=== PATIENT | male | born 1955 | race Caucasian/White ===

== ENCOUNTER 2017-10-16 13:43 | Inpatient (IN) | payer OTHER ==
[~2017-10-16] VITALS: Ht 188 cm; Wt 71.3 kg
[2017-10-16 14:39] LABS: HEMATOCRIT 46.9 % (38.0-50.0); HEMOGLOBIN 15.8 G/DL (12.5-16.6); MCHC 33.7 G/DL (30.0-36.0); MCV 95.1 FL (86-99); RBC DIS.WIDTH-CV 14.3 % (11.8-14.6); RBC DIS.WIDTH-SD 50.1 % (39-53); RED BLOOD COUNT 4.93 M/uL (4.00-5.50); WHITE BLOOD COUNT 12.3 K/uL (4.1-10.2)
[2017-10-16 14:45] LABS: INTER. NORMALIZED RATIO 1.2
[2017-10-16 14:47] LABS: PTT 24.9 SEC (25-37)
[2017-10-16 14:54] LABS: CHLORIDE 102 mEq/L (99-109); POTASSIUM 4.9 mEq/L (3.7-5.4); SODIUM 137 mEq/L (136-147)
[2017-10-16 14:57] LABS: GLUCOSE 125 mg/dL (70-99); TOTAL PROTEIN 7.3 g/dL (6.4-8.3)
[2017-10-16 14:59] LABS: TOTAL BILIRUBIN 1.8 mg/dL (0.0-1.0)
[2017-10-16 15:00] LABS: ALKALINE PHOSPHATASE 80 IU/L (3-129)
[2017-10-16 15:01] LABS: UREA NITROGEN (BUN) 20 mg/dL (9-23)
[2017-10-16 15:02] LABS: AST (GOT) 20 IU/L (2-34); GFR ESTIMATE (CALCULATED) > 59 mL/min/ (58.99-99999)
[2017-10-16 15:03] LABS: ALT (GPT) 11 IU/L (3-49)
[2017-10-16 15:06] LABS: TROP-I INTERPRETATION NEGATIVE; TROPONIN-I 0.09 ng/mL (0.0-0.30)
[2017-10-16 15:10] LABS: DIGOXIN < 0.3 ng/mL (0.8-2.0)
[2017-10-16 15:30] LABS: PLAT.SUFFICIENCY DECREASED; PLATELET CLUMPS PRESENT - PLATELET COUNTS APPEARS DECREASED; PLATELET COUNT UNABLE TO REPORT K/uL (156-360)
[2017-10-16] MEDS ORDERED: ASPIRIN325 MG PO (16:16)
[2017-10-16 16:17] LABS: THYROTROPIN (TSH) 2.2 MIU/L (0.4-5.5)
[2017-10-16] MEDS ORDERED: ALKA-SELTZER P1 EAC6 PO (16:18)
[2017-10-16 16:23] LABS: MAGNESIUM 2.1 mg/dL (1.3-2.7)
[2017-10-16 16:41] LABS: HDL CHOLESTEROL 33 MG/DL (Desirable>=40); LDL CHOLESTEROL 86 mg/dL (Desirable<100); NON-HDL CHOLESTEROL 99 mg/dL (Desirable<160); TOTAL CHOLESTEROL 132 mg/dL (Desirable<200); TRIGLYCERIDES 67 MG/DL (Normal: <150)
[2017-10-16 17:10] VITALS: BP 176/116
[2017-10-16 19:04] VITALS: BP 169/113
[2017-10-16 21:50] VITALS: BP 138/82
[2017-10-16 22:17] LABS: TROP-I INTERPRETATION NEGATIVE; TROPONIN-I 0.09 ng/mL (0.0-0.30)
[2017-10-16 23:45] VITALS: BP 138/89
[2017-10-17 02:38] VITALS: BP 136/89
[2017-10-17 02:45] LABS: HEMATOCRIT 46.1 % (38.0-50.0); HEMOGLOBIN 15.6 G/DL (12.5-16.6); MCH 31.8 PG (29.0-34.0); MCHC 33.8 G/DL (30.0-36.0); MCV 94.1 FL (86-99); RBC DIS.WIDTH-CV 14.2 % (11.8-14.6); RBC DIS.WIDTH-SD 49.4 % (39-53)
[2017-10-17 03:00] LABS: ALBUMIN 3.9 g/dL (3.2-4.8)
[2017-10-17 03:01] LABS: CHLORIDE 99 mEq/L (99-109); POTASSIUM 3.9 mEq/L (3.7-5.4); SODIUM 139 mEq/L (136-147)
[2017-10-17 03:03] LABS: GLUCOSE 97 mg/dL (70-99); TOTAL PROTEIN 6.7 g/dL (6.4-8.3)
[2017-10-17 03:06] LABS: ALKALINE PHOSPHATASE 82 IU/L (3-129)
[2017-10-17 03:07] LABS: CREATININE 1.2 mg/dL (0.6-1.3); GFR ESTIMATE (CALCULATED) > 59 mL/min/ (58.99-99999)
[2017-10-17 03:08] LABS: AST (GOT) 23 IU/L (2-34); UREA NITROGEN (BUN) 23 mg/dL (9-23)
[2017-10-17 03:10] LABS: ALT (GPT) 14 IU/L (3-49)
[2017-10-17 03:12] LABS: TROP-I INTERPRETATION NEGATIVE; TROPONIN-I 0.11 ng/mL (0.0-0.30)
[2017-10-17 03:13] LABS: PLATELET COUNT 156 K/uL (156-360)
[2017-10-17 07:42] VITALS: BP 130/64
[2017-10-17 14:49] VITALS: BP 100/73
[2017-10-17 19:39] VITALS: BP 93/61
[2017-10-18] VITALS (7 sets, daily range): BP systolic 105–131; BP diastolic 75–92
[2017-10-18 05:39] LABS: HEMOGLOBIN 14.9 G/DL (12.5-16.6); MCH 31.2 PG (29.0-34.0); MCHC 33.9 G/DL (30.0-36.0); MCV 92.2 FL (86-99); RBC DIS.WIDTH-CV 13.8 % (11.8-14.6); RBC DIS.WIDTH-SD 47.4 % (39-53); RED BLOOD COUNT 4.77 M/uL (4.00-5.50); WHITE BLOOD COUNT 9.8 K/uL (4.1-10.2)
[2017-10-18 05:41] LABS: PLATELET COUNT 203 K/uL (156-360)
[2017-10-18 06:07] LABS: CHLORIDE 98 MEQ/L (99-109); CREATININE 1.1 MG/DL (0.6-1.3); GFR ESTIMATE (CALCULATED) > 59 mL/min/ (58.99-99999); GLUCOSE 101 mg/dL (70-99); POTASSIUM 3.6 MEQ/L (3.7-5.4); SODIUM 136 MEQ/L (136-147); UREA NITROGEN (BUN) 22 mg/dL (9-23)
[2017-10-19] VITALS (14 sets, daily range): BP systolic 75–135; BP diastolic 00–99
[2017-10-19 06:40] LABS: CHLORIDE 89 MEQ/L (99-109); SODIUM 131 MEQ/L (136-147); UREA NITROGEN (BUN) 30 mg/dL (9-23)
[2017-10-19 06:49] LABS: GFR ESTIMATE (CALCULATED) 36 mL/min/ (58.99-99999); GLUCOSE 159 mg/dL (70-99); POTASSIUM 5.2 MEQ/L (3.7-5.4)
[2017-10-19 11:54] LABS: BASOPHIL (%) 0.3 % (0-1); BASOPHIL COUNT 0.1 K/uL (0-0.1); EOSINOPHIL (%) 0.1 % (0-5); HEMATOCRIT 50.3 % (38.0-50.0); IMMATURE GRANULOCYTE (%) 1.1 % (0.0-0.7); LYMPHOCYTE (%) 7.3 % (15-42); LYMPHOCYTE COUNT 1.2 K/uL (1.0-2.8); MCH 32.2 PG (29.0-34.0); MCHC 33.8 G/DL (30.0-36.0); MCV 95.3 FL (86-99); MONOCYTE (%) 15.6 % (3-12); MONOCYTE COUNT 2.5 K/uL (0-0.8); NEUTROPHIL (%) 75.6 % (45-76); NEUTROPHIL COUNT 11.9 K/uL (1.8-6.4); PLATELET COUNT 144 K/uL (156-360); RBC DIS.WIDTH-CV 14.2 % (11.8-14.6); RBC DIS.WIDTH-SD 49.5 % (39-53); RED BLOOD COUNT 5.28 M/uL (4.00-5.50); WHITE BLOOD COUNT 15.8 K/uL (4.1-10.2)
[2017-10-19 11:57] LABS: BASE EXCESS -10.5 mEq/L (-3 to +3); BICARBONATE 14.1 mEq/L (22-26); CARBOXY HGB 1.5 % (0-5); DEVICE 840 PB; FI02 100 %; METHEMOGLOBIN 1.3 % (0-1.5); MODE SPONT; PCO2 28 mm Hg (35-45); PEEP 6 CM/H20; PO2 362 mm Hg (80-100); PRES. SUPPORT 12 CM/H2O; SITE R ALINE; TOTAL RESP RATE 14 resp/min; pH 7.31 (7.35-7.45)
[2017-10-19 12:02] LABS: CHLORIDE 95 mEq/L (99-109); SODIUM 131 mEq/L (136-147)
[2017-10-19 12:03] LABS: ALBUMIN 3.7 g/dL (3.2-4.8); MAGNESIUM 1.9 mg/dL (1.3-2.7)
[2017-10-19 12:05] LABS: TOTAL PROTEIN 6.7 g/dL (6.4-8.3)
[2017-10-19 12:07] LABS: TOTAL BILIRUBIN 2.3 mg/dL (0.0-1.0)
[2017-10-19 12:08] LABS: PHOSPHORUS 6.8 mg/dL (2.5-4.9)
[2017-10-19 12:09] LABS: ALKALINE PHOSPHATASE 81 IU/L (3-129)
[2017-10-19 12:10] LABS: UREA NITROGEN (BUN) 34 mg/dL (9-23)
[2017-10-19 12:14] LABS: TROP-I INTERPRETATION NEGATIVE; TROPONIN-I 0.06 ng/mL (0.0-0.30)
[2017-10-19 12:23] LABS: ALT (GPT) 126 IU/L (3-49); AST (GOT) 170 IU/L (2-34); CREATININE 2.6 mg/dL (0.6-1.3); GFR ESTIMATE (CALCULATED) 27 mL/min/ (58.99-99999); GLUCOSE 106 mg/dL (70-99)
[2017-10-19 12:23] LABS: APPEARANCE CLOUDY ((CLEAR)); BILIRUBIN NEGATIVE; BLOOD NEGATIVE; COLOR AMBER ((YELLOW)); GLUCOSE (STRIP) NEGATIVE; KETONES NEGATIVE; LEUKOCYTES NEGATIVE; NITRITE NEGATIVE; PROTEIN (STRIP) 30; SPECIFIC GRAVITY 1.025 (1.000-1.030)
[2017-10-19 12:36] LABS: INTER. NORMALIZED RATIO 3.6; PTT 34.4 SEC (25-37)
[2017-10-19 12:56] LABS: ANTI-HEPATITIS B CORE (TOTAL) Nonreactive
[2017-10-19 12:59] LABS: EPITHELIAL CELLS RARE /HPF; WHITE BLOOD CELLS 0-5 /HPF (0-5)
[2017-10-19 13:00] LABS: BACTERIA 1+ /HPF; MUCUS NONE SEEN /LPF; UCUL ADDED? NO
[2017-10-19 13:47] LABS: BASE EXCESS -6.2 mEq/L (-3 to +3); CARBOXY HGB 1.6 % (0-5); DEVICE 840 PB; FI02 60 %; MECHANICAL RATE 16 resp/min; METHEMOGLOBIN 1.4 % (0-1.5); MODE AC; PCO2 36 mm Hg (35-45); PEEP 5 CM/H20; PO2 71 mm Hg (80-100); SITE L FEM ALINE; TIDAL VOLUME 450 ML; TOTAL RESP RATE 16 resp/min; pH 7.33 (7.35-7.45)
[2017-10-19 14:50] LABS: CREATINE KINASE 68 IU/L (1-294)
[2017-10-19 16:01] LABS: INTER. NORMALIZED RATIO 4.2
[2017-10-19 16:04] LABS: PTT 36.1 SEC (25-37)
[2017-10-19 16:08] LABS: BASE EXCESS -6.9 mEq/L (-3 to +3); BICARBONATE 19.2 mEq/L (22-26); CARBOXY HGB 1.8 % (0-5); COMMENTS - BLOOD GASES C+ANA; METHEMOGLOBIN 1.3 % (0-1.5); PCO2 40 mm Hg (35-45); PO2 107 mm Hg (80-100); SITE ALINE; pH 7.29 (7.35-7.45)
[2017-10-19 16:09] LABS: DEVICE 980 PB; FI02 100 %; MECHANICAL RATE 14 resp/min; MODE AC; TIDAL VOLUME 450 ML; TOTAL RESP RATE 21 resp/min
[2017-10-19 16:10] LABS: PEEP 5 CM/H20
[2017-10-19 16:17] LABS: MAGNESIUM 1.4 mg/dl (1.3-2.7); PHOSPHORUS 5.4 mg/dL (2.5-4.9); SODIUM 134 MEQ/L (136-147); UREA NITROGEN (BUN) 34 mg/dL (9-23)
[2017-10-19 16:22] LABS: BASOPHIL (%) 0.1 % (0-1); CHLORIDE 100 MEQ/L (99-109); CREATININE 2.1 MG/DL (0.6-1.3); EOSINOPHIL (%) 0.1 % (0-5); GFR ESTIMATE (CALCULATED) 34 mL/min/ (58.99-99999); GLUCOSE 162 mg/dL (70-99); HEMATOCRIT 41.3 % (38.0-50.0); HEMATOLOGY COMMENT 1 SN; HEMOGLOBIN 13.8 G/DL (12.5-16.6); IMMATURE GRANULOCYTE (%) 0.8 % (0.0-0.7); LYMPHOCYTE (%) 2.7 % (15-42); LYMPHOCYTE COUNT 0.4 K/uL (1.0-2.8); MCH 31.7 PG (29.0-34.0); MCHC 33.4 G/DL (30.0-36.0); MCV 94.9 FL (86-99); MONOCYTE (%) 5.4 % (3-12); MONOCYTE COUNT 0.8 K/uL (0-0.8); NEUTROPHIL (%) 90.9 % (45-76); NEUTROPHIL COUNT 13.6 K/uL (1.8-6.4); PLAT.SUFFICIENCY DECREASED; PLATELET COUNT 88 K/uL (156-360); POTASSIUM 4.5 MEQ/L (3.7-5.4); RBC DIS.WIDTH-CV 14.2 % (11.8-14.6); RBC DIS.WIDTH-SD 49.2 % (39-53); RED BLOOD COUNT 4.35 M/uL (4.00-5.50)
[2017-10-19 19:27] LABS: BASE EXCESS -5.5 mEq/L (-3 to +3); BICARBONATE 18.3 mEq/L (22-26); CARBOXY HGB 1.4 % (0-5); METHEMOGLOBIN 1.4 % (0-1.5); pH 7.38 (7.35-7.45)
[2017-10-19 19:28] LABS: COMMENTS - BLOOD GASES C+; DEVICE VENT; FI02 100 %; MECHANICAL RATE 14 resp/min; MODE A/C; PCO2 31 mm Hg (35-45); PEEP 5 CM/H20; PO2 194 mm Hg (80-100); SITE A LINE; TIDAL VOLUME 450 ML; TOTAL RESP RATE 18 resp/min
[2017-10-19 19:40] LABS: HEMATOCRIT 46.4 % (38.0-50.0); HEMOGLOBIN 15.5 G/DL (12.5-16.6); MCH 31.8 PG (29.0-34.0); MCHC 33.4 G/DL (30.0-36.0); MCV 95.3 FL (86-99); RBC DIS.WIDTH-CV 14.5 % (11.8-14.6); RBC DIS.WIDTH-SD 50.2 % (39-53); RED BLOOD COUNT 4.87 M/uL (4.00-5.50); WHITE BLOOD COUNT 19.6 K/uL (4.1-10.2)
[2017-10-19 20:04] LABS: PLATELET COUNT 117 K/uL (156-360)
[2017-10-19 20:23] LABS: ALBUMIN 3.1 G/DL (3.2-4.8); ALKALINE PHOSPHATASE 63 IU/L (3-129); CHLORIDE 97 MEQ/L (99-109); CREATININE 2.2 MG/DL (0.6-1.3); GFR ESTIMATE (CALCULATED) 33 mL/min/ (58.99-99999); GLUCOSE 192 mg/dL (70-99); PHOSPHORUS 5.7 mg/dL (2.5-4.9); SODIUM 129 MEQ/L (136-147); TOTAL BILIRUBIN 2.1 MG/DL (0.0-1.0); TOTAL PROTEIN 5.4 G/DL (6.4-8.3); UREA NITROGEN (BUN) 35 mg/dL (9-23)
[2017-10-19 20:27] LABS: POTASSIUM 6.5 MEQ/L (3.7-5.4)
[2017-10-19 20:28] LABS: ALT (GPT) 1072 IU/L (3-49); AST (GOT) 1526 IU/L (2-34); MAGNESIUM 1.8 mg/dl (1.3-2.7)
[2017-10-19 20:42] LABS: BASE EXCESS -11.1 mEq/L (-3 to +3); BICARBONATE 17.8 mEq/L (22-26); CARBOXY HGB 1.5 % (0-5); METHEMOGLOBIN 1.2 % (0-1.5)
[2017-10-19 21:24] LABS: PCO2 50 mm Hg (35-45); PO2 59 mm Hg (80-100)
[2017-10-19 21:26] LABS: COMMENTS - BLOOD GASES C+; DEVICE ETT TO AMBU BAG; FI02 100 %; SITE A LINE; pH 7.16 (7.35-7.45)
[2017-10-19 21:59] LABS: BASE EXCESS -7.5 mEq/L (-3 to +3); BICARBONATE 21.1 mEq/L (22-26); CARBOXY HGB 1.7 % (0-5); METHEMOGLOBIN 1.4 % (0-1.5); PCO2 54 mm Hg (35-45); PO2 63 mm Hg (80-100)
[2017-10-19 22:00] LABS: COMMENTS - BLOOD GASES C+; DEVICE VENT; FI02 100 %; MECHANICAL RATE 20 resp/min; MODE A/C; PEEP 8 CM/H20; SITE A LINE; TIDAL VOLUME 450 ML; TOTAL RESP RATE 20 resp/min
[2017-10-20] VITALS (33 sets, daily range): BP systolic 92–1140; BP diastolic 65–810
[2017-10-20 00:27] LABS: BASE EXCESS -5.3 mEq/L (-3 to +3); BICARBONATE 21.2 mEq/L (22-26); CARBOXY HGB 1.8 % (0-5); METHEMOGLOBIN 1.7 % (0-1.5); PCO2 44 mm Hg (35-45); PO2 52 mm Hg (80-100)
[2017-10-20 00:28] LABS: COMMENTS - BLOOD GASES C+; DEVICE VENT; FI02 100 %; MECHANICAL RATE 24 resp/min; MODE AC; PEEP 10 CM/H20; SITE A-LINE; TIDAL VOLUME 450 ML; TOTAL RESP RATE 24 resp/min; pH 7.29 (7.35-7.45)
[2017-10-20 00:46] LABS: INTER. NORMALIZED RATIO 3.9
[2017-10-20 00:49] LABS: PTT 34.5 SEC (25-37)
[2017-10-20 00:50] LABS: CHLORIDE 99 mEq/L (99-109); POTASSIUM 5.4 mEq/L (3.7-5.4)
[2017-10-20 00:53] LABS: GLUCOSE 117 mg/dL (70-99); SODIUM 137 mEq/L (136-147)
[2017-10-20 00:55] LABS: CREATININE 2.2 mg/dL (0.6-1.3); GFR ESTIMATE (CALCULATED) 33 mL/min/ (58.99-99999)
[2017-10-20 00:56] LABS: UREA NITROGEN (BUN) 33 mg/dL (9-23)
[2017-10-20 03:42] LABS: BASE EXCESS -5.1 mEq/L (-3 to +3); BICARBONATE 18.6 mEq/L (22-26); CARBOXY HGB 1.8 % (0-5); COMMENTS - BLOOD GASES C+; DEVICE VENT; FI02 100 %; INSPIRATION TIME 1.25 seconds; MECHANICAL RATE 20 resp/min; METHEMOGLOBIN 1.2 % (0-1.5); MODE ACPC; PCO2 30 mm Hg (35-45); PEEP 12 CM/H20; PO2 143 mm Hg (80-100); PRESSURE CONTROL VENTILATION 25 CM H20; SITE A-LINE; TOTAL RESP RATE 20 resp/min
[2017-10-20 05:55] LABS: BASE EXCESS -2.3 mEq/L (-3 to +3); BICARBONATE 21.2 mEq/L (22-26); CARBOXY HGB 1.9 % (0-5); METHEMOGLOBIN 1.8 % (0-1.5); PCO2 32 mm Hg (35-45); pH 7.43 (7.35-7.45)
[2017-10-20 05:56] LABS: COMMENTS - BLOOD GASES C+; DEVICE VENT; FI02 90 %; INSPIRATION TIME 1.25 seconds; MECHANICAL RATE 20 resp/min; MODE ACPC; PEEP 12 CM/H20; PO2 106 mm Hg (80-100); PRESSURE CONTROL VENTILATION 25 CM H20; SITE A-LINE; TOTAL RESP RATE 20 resp/min
[2017-10-20 06:04] LABS: BASOPHIL (%) 0.2 % (0-1); EOSINOPHIL (%) 0 % (0-5); HEMATOCRIT 39.8 % (38.0-50.0); LYMPHOCYTE (%) 2.8 % (15-42); LYMPHOCYTE COUNT 0.6 K/uL (1.0-2.8); MCH 31.1 PG (29.0-34.0); MCHC 33.2 G/DL (30.0-36.0); MCV 93.9 FL (86-99); MONOCYTE (%) 5.3 % (3-12); MONOCYTE COUNT 1.1 K/uL (0-0.8); NEUTROPHIL (%) 90.7 % (45-76); NEUTROPHIL COUNT 19.6 K/uL (1.8-6.4); PLATELET COUNT 121 K/uL (156-360); RBC DIS.WIDTH-CV 14.5 % (11.8-14.6); RBC DIS.WIDTH-SD 49.8 % (39-53); RED BLOOD COUNT 4.24 M/uL (4.00-5.50); WHITE BLOOD COUNT 21.6 K/uL (4.1-10.2)
[2017-10-20 06:06] LABS: INTER. NORMALIZED RATIO 3.2
[2017-10-20 06:09] LABS: PTT 32.1 SEC (25-37)
[2017-10-20 06:20] LABS: HEMOGLOBIN 13.2 G/DL (12.5-16.6)
[2017-10-20 06:21] LABS: ALBUMIN 3.4 G/DL (3.2-4.8); CHLORIDE 95 MEQ/L (99-109); CREATININE 2.6 MG/DL (0.6-1.3); GFR ESTIMATE (CALCULATED) 27 mL/min/ (58.99-99999); GLUCOSE 141 mg/dL (70-99); PHOSPHORUS 5.6 mg/dL (2.5-4.9); POTASSIUM 5.1 MEQ/L (3.7-5.4); SODIUM 138 MEQ/L (136-147); UREA NITROGEN (BUN) 38 mg/dL (9-23)
[2017-10-20 08:22] LABS: DIGOXIN 2.3 ng/mL (0.8-2.0)
[2017-10-20 08:49] LABS: BASE EXCESS -0.8 mEq/L (-3 to +3); BICARBONATE 20.1 mEq/L (22-26); CARBOXY HGB 1.8 % (0-5); DEVICE 840 PB; FI02 90 %; MECHANICAL RATE 20 resp/min; METHEMOGLOBIN 1.5 % (0-1.5); MODE ACPC; PCO2 23 mm Hg (35-45); PO2 134 mm Hg (80-100); SITE L ALINE; TOTAL RESP RATE 20 resp/min; pH 7.55 (7.35-7.45)
[2017-10-20 08:50] LABS: PRESSURE CONTROL VENTILATION 25 CM H20
[2017-10-20 08:51] LABS: INSPIRATION TIME 1.25 seconds; PEEP 12 CM/H20
[2017-10-20 09:44] LABS: ALBUMIN 3.3 G/DL (3.2-4.8); ALKALINE PHOSPHATASE 63 IU/L (3-129); CHLORIDE 94 MEQ/L (99-109); CREATININE 2.7 MG/DL (0.6-1.3); DIRECT BILIRUBIN 1.9 mg/dL (0.0-0.3); GFR ESTIMATE (CALCULATED) 26 mL/min/ (58.99-99999); GLUCOSE 137 mg/dL (70-99); SODIUM 138 MEQ/L (136-147); TOTAL PROTEIN 5.5 G/DL (6.4-8.3); UREA NITROGEN (BUN) 36 mg/dL (9-23)
[2017-10-20 09:55] LABS: ALT (GPT) 2934 IU/L (3-49); AST (GOT) 5315 IU/L (2-34); TOTAL BILIRUBIN 3.4 MG/DL (0.0-1.0)
[2017-10-20 11:54] LABS: BASE EXCESS 0.2 mEq/L (-3 to +3); BICARBONATE 20.6 mEq/L (22-26); CARBOXY HGB 1.6 % (0-5); COMMENTS - BLOOD GASES C+; DEVICE VENT; FI02 100 %; METHEMOGLOBIN 1.3 % (0-1.5); PCO2 22 mm Hg (35-45); PO2 219 mm Hg (80-100)
[2017-10-20 11:55] LABS: INSPIRATION TIME 1.25 seconds; MECHANICAL RATE 20 resp/min; MODE ACPC; PEEP 15 CM/H20; PRESSURE CONTROL VENTILATION 25 CM H20
[2017-10-20 11:57] LABS: SITE L FEM ALINE; pH 7.58 (7.35-7.45)
[2017-10-20 12:02] LABS: BASE EXCESS 2.2 mEq/L (-3 to +3); BICARBONATE 25.1 mEq/L (22-26); CARBOXY HGB 1.4 % (0-5); COMMENTS - BLOOD GASES C+; DEVICE VENT; FI02 100 %; INSPIRATION TIME 1.25 seconds; MECHANICAL RATE 20 resp/min; METHEMOGLOBIN 1.7 % (0-1.5); MODE ACPC; PCO2 33 mm Hg (35-45); PEEP 15 CM/H20; PRESSURE CONTROL VENTILATION 25 CM H20; SITE L FEM L; pH 7.49 (7.35-7.45)
[2017-10-20 12:03] LABS: PO2 33 mm Hg (80-100)
[2017-10-20 18:49] LABS: HEMATOCRIT 34.3 % (38.0-50.0); HEMOGLOBIN 11.5 G/DL (12.5-16.6); MCH 31.5 PG (29.0-34.0); MCHC 33.5 G/DL (30.0-36.0); PLATELET COUNT 90 K/uL (156-360); RBC DIS.WIDTH-CV 14.6 % (11.8-14.6); RBC DIS.WIDTH-SD 50.4 % (39-53); RED BLOOD COUNT 3.65 M/uL (4.00-5.50); WHITE BLOOD COUNT 14.6 K/uL (4.1-10.2)
[2017-10-20 18:56] LABS: INTER. NORMALIZED RATIO 2.8
[2017-10-20 18:58] LABS: PTT 32.7 SEC (25-37)
[2017-10-20 18:58] LABS: BASE EXCESS 5.7 mEq/L (-3 to +3); BICARBONATE 27.8 mEq/L (22-26); CARBOXY HGB 1.5 % (0-5); METHEMOGLOBIN 1.4 % (0-1.5); PCO2 31 mm Hg (35-45)
[2017-10-20 18:59] LABS: PO2 143 mm Hg (80-100); SITE A LINE; pH 7.56 (7.35-7.45)
[2017-10-20 19:00] LABS: COMMENTS - BLOOD GASES C+; DEVICE VENT; FI02 70 %; INSPIRATION TIME 1.25 seconds; MECHANICAL RATE 20 resp/min; MODE A/C; PEEP 12 CM/H20; PRESSURE CONTROL VENTILATION 18 CM H20; TOTAL RESP RATE 20 resp/min
[2017-10-20 19:07] LABS: ALBUMIN 3.5 G/DL (3.2-4.8); ALKALINE PHOSPHATASE 75 IU/L (3-129); CHLORIDE 92 MEQ/L (99-109); GFR ESTIMATE (CALCULATED) 23 mL/min/ (58.99-99999); GLUCOSE 166 mg/dL (70-99); MAGNESIUM 1.6 mg/dl (1.3-2.7); PHOSPHORUS 4.9 mg/dL (2.5-4.9); SODIUM 137 MEQ/L (136-147); TOTAL BILIRUBIN 3.6 MG/DL (0.0-1.0); UREA NITROGEN (BUN) 44 mg/dL (9-23)
[2017-10-20 19:22] LABS: ALT (GPT) 3643 IU/L (3-49); AST (GOT) 7156 IU/L (2-34)
[2017-10-20 22:45] LABS: HEMATOCRIT 32.1 % (38.0-50.0); HEMOGLOBIN 11.1 G/DL (12.5-16.6); MCH 32.5 PG (29.0-34.0); MCHC 34.6 G/DL (30.0-36.0); MCV 93.9 FL (86-99); PLATELET COUNT 74 K/uL (156-360); RBC DIS.WIDTH-CV 14.6 % (11.8-14.6); RBC DIS.WIDTH-SD 49.8 % (39-53); RED BLOOD COUNT 3.42 M/uL (4.00-5.50); WHITE BLOOD COUNT 12.5 K/uL (4.1-10.2)
[2017-10-21] VITALS (13 sets, daily range): BP systolic 138–158; BP diastolic 72–99
[2017-10-21 01:55] LABS: HEMOGLOBIN 10.6 G/DL (12.5-16.6); MCH 31.7 PG (29.0-34.0); MCHC 34.2 G/DL (30.0-36.0); MCV 92.8 FL (86-99); PLATELET COUNT 73 K/uL (156-360); RBC DIS.WIDTH-CV 14.4 % (11.8-14.6); RBC DIS.WIDTH-SD 48.2 % (39-53); RED BLOOD COUNT 3.34 M/uL (4.00-5.50)
[2017-10-21 05:01] LABS: ALBUMIN 3.2 g/dL (3.2-4.8); CHLORIDE 91 mEq/L (99-109)
[2017-10-21 05:02] LABS: POTASSIUM 3.6 mEq/L (3.7-5.4); SODIUM 138 mEq/L (136-147)
[2017-10-21 05:03] LABS: GLUCOSE 121 mg/dL (70-99)
[2017-10-21 05:07] LABS: GFR ESTIMATE (CALCULATED) 18 mL/min/ (58.99-99999); PHOSPHORUS 4.7 mg/dL (2.5-4.9)
[2017-10-21 05:08] LABS: UREA NITROGEN (BUN) 49 mg/dL (9-23)
[2017-10-21 05:09] LABS: CREATININE 3.6 mg/dL (0.6-1.3)
[2017-10-21 06:11] LABS: BICARBONATE 40.2 mEq/L (22-26); CARBOXY HGB 1.8 % (0-5); METHEMOGLOBIN 1.4 % (0-1.5); PCO2 46 mm Hg (35-45); PO2 36 mm Hg (80-100); SITE CENTRAL LINE; pH 7.55 (7.35-7.45)
[2017-10-21 06:12] LABS: DEVICE VENT
[2017-10-21 08:52] LABS: PTT 34.2 SEC (25-37)
[2017-10-21 09:28] LABS: FIBRINOGEN 208 mg/dL (150-450)
[2017-10-21 10:34] LABS: HEPATITIS B SURFACE ANTIGEN Nonreactive; HEPATITIS C ANTIBODY Nonreactive
[2017-10-21 10:35] LABS: ANTI-HEPATITIS A VIRUS (IGM) Nonreactive; ANTI-HEPATITIS B CORE (IGM) Nonreactive
[2017-10-21 18:45] LABS: ALBUMIN 3.4 G/DL (3.2-4.8); CHLORIDE 89 MEQ/L (99-109); CREATININE 4.2 MG/DL (0.6-1.3); GFR ESTIMATE (CALCULATED) 15 mL/min/ (58.99-99999); GLUCOSE 117 mg/dL (70-99); PHOSPHORUS 4.5 mg/dL (2.5-4.9); POTASSIUM 3.7 MEQ/L (3.7-5.4); SODIUM 140 MEQ/L (136-147); UREA NITROGEN (BUN) 59 mg/dL (9-23)
[2017-10-22 00:45] LABS: ALBUMIN 3.3 g/dL (3.2-4.8)
[2017-10-22 00:46] LABS: CHLORIDE 91 mEq/L (99-109); POTASSIUM 3.8 mEq/L (3.7-5.4); SODIUM 138 mEq/L (136-147)
[2017-10-22 00:47] LABS: GLUCOSE 106 mg/dL (70-99)
[2017-10-22 00:51] LABS: CREATININE 3.7 mg/dL (0.6-1.3); GFR ESTIMATE (CALCULATED) 18 mL/min/ (58.99-99999); PHOSPHORUS 3.8 mg/dL (2.5-4.9)
[2017-10-22 00:52] LABS: UREA NITROGEN (BUN) 54 mg/dL (9-23)
[2017-10-22 04:01] VITALS: BP 129/78
[2017-10-22 05:22] LABS: HEMATOCRIT 30.5 % (38.0-50.0); HEMOGLOBIN 10.4 G/DL (12.5-16.6); MCH 31.3 PG (29.0-34.0); MCHC 34.1 G/DL (30.0-36.0); MCV 91.9 FL (86-99); NRBC (%) 0.2 /100 WBC (0-0); PLATELET COUNT 65 K/uL (156-360); RBC DIS.WIDTH-CV 14.6 % (11.8-14.6); RBC DIS.WIDTH-SD 48.1 % (39-53); RED BLOOD COUNT 3.32 M/uL (4.00-5.50); WHITE BLOOD COUNT 12.9 K/uL (4.1-10.2)
[2017-10-22 05:32] LABS: INTER. NORMALIZED RATIO 3.3
[2017-10-22 06:14] LABS: ALBUMIN 3.2 G/DL (3.2-4.8); ALKALINE PHOSPHATASE 79 IU/L (3-129); CHLORIDE 91 MEQ/L (99-109); CREATININE 3.6 MG/DL (0.6-1.3); GFR ESTIMATE (CALCULATED) 18 mL/min/ (58.99-99999); GLUCOSE 113 mg/dL (70-99); POTASSIUM 3.7 MEQ/L (3.7-5.4); SODIUM 136 MEQ/L (136-147); TOTAL PROTEIN 5.7 G/DL (6.4-8.3); UREA NITROGEN (BUN) 50 mg/dL (9-23)
[2017-10-22 06:15] LABS: TOTAL BILIRUBIN 5.4 MG/DL (0.0-1.0)
[2017-10-22 06:18] LABS: ALBUMIN 3.2 G/DL (3.2-4.8); CHLORIDE 91 MEQ/L (99-109); CREATININE 3.5 MG/DL (0.6-1.3); GFR ESTIMATE (CALCULATED) 19 mL/min/ (58.99-99999); GLUCOSE 112 mg/dL (70-99); POTASSIUM 3.7 MEQ/L (3.7-5.4); SODIUM 137 MEQ/L (136-147); UREA NITROGEN (BUN) 50 mg/dL (9-23)
[2017-10-22 06:25] LABS: A/G RATIO 1.2 (1.1-1.8); ALBUMIN 3.1 G/DL (3.2-4.8); ALBUMIN 3.1 G/DL (3.4-5.0); CHLORIDE 93 MEQ/L (99-109); CREATININE 3.6 MG/DL (0.6-1.3); GFR ESTIMATE (CALCULATED) 18 mL/min/ (58.99-99999); GLOBULINS 2.6 G/DL (2.3-3.5); GLUCOSE 112 mg/dL (70-99); MAGNESIUM 1.7 mg/dl (1.3-2.7); POTASSIUM 3.7 MEQ/L (3.7-5.4); SODIUM 138 MEQ/L (136-147); TOTAL PROTEIN 5.7 G/DL (6.4-8.2); TRANSFERRIN (TIBC) 185.1 mg/dL (215-380); UREA NITROGEN (BUN) 50 mg/dL (9-23)
[2017-10-22 10:52] LABS: ALT (GPT) 2475 IU/L (3-49); AST (GOT) 2173 IU/L (2-34)
[2017-10-22 13:04] LABS: ALBUMIN 3.2 G/DL (3.2-4.8); CHLORIDE 95 MEQ/L (99-109); CREATININE 3.2 MG/DL (0.6-1.3); GFR ESTIMATE (CALCULATED) 21 mL/min/ (58.99-99999); GLUCOSE 126 mg/dL (70-99); PHOSPHORUS 2.6 mg/dL (2.5-4.9); POTASSIUM 3.9 MEQ/L (3.7-5.4); SODIUM 137 MEQ/L (136-147); UREA NITROGEN (BUN) 44 mg/dL (9-23)
[2017-10-22 20:00] VITALS: BP 129/91
[2017-10-23] VITALS: BP 148/87
[2017-10-23 01:21] LABS: ALBUMIN 3.2 g/dL (3.2-4.8)
[2017-10-23 01:22] LABS: CHLORIDE 99 mEq/L (99-109); POTASSIUM 4.3 mEq/L (3.7-5.4); SODIUM 137 mEq/L (136-147)
[2017-10-23 01:24] LABS: GLUCOSE 119 mg/dL (70-99)
[2017-10-23 01:27] LABS: GFR ESTIMATE (CALCULATED) 27 mL/min/ (58.99-99999); PHOSPHORUS 2.4 mg/dL (2.5-4.9)
[2017-10-23 01:28] LABS: CREATININE 2.6 mg/dL (0.6-1.3); UREA NITROGEN (BUN) 36 mg/dL (9-23)
[2017-10-23 04:00] VITALS: BP 127/71
[2017-10-23 06:08] LABS: BASOPHIL (%) 0.1 % (0-1); EOSINOPHIL (%) 0 % (0-5); HEMOGLOBIN 11.8 G/DL (12.5-16.6); IMMATURE GRANULOCYTE (%) 0.9 % (0.0-0.7); LYMPHOCYTE (%) 5.6 % (15-42); LYMPHOCYTE COUNT 0.7 K/uL (1.0-2.8); MCH 31.5 PG (29.0-34.0); MCHC 34.7 G/DL (30.0-36.0); MCV 90.7 FL (86-99); MONOCYTE (%) 4.6 % (3-12); MONOCYTE COUNT 0.6 K/uL (0-0.8); NEUTROPHIL (%) 88.8 % (45-76); NEUTROPHIL COUNT 11.8 K/uL (1.8-6.4); NRBC (%) 0.2 /100 WBC (0-0); PLATELET COUNT 82 K/uL (156-360); RBC DIS.WIDTH-CV 14.2 % (11.8-14.6); RBC DIS.WIDTH-SD 46.9 % (39-53); RED BLOOD COUNT 3.75 M/uL (4.00-5.50); WHITE BLOOD COUNT 13.3 K/uL (4.1-10.2)
[2017-10-23 06:45] LABS: ALBUMIN 3.1 G/DL (3.2-4.8); ALKALINE PHOSPHATASE 90 IU/L (3-129); CHLORIDE 99 MEQ/L (99-109); CREATININE 2.5 MG/DL (0.6-1.3); GFR ESTIMATE (CALCULATED) 28 mL/min/ (58.99-99999); GLUCOSE 123 mg/dL (70-99); SODIUM 136 MEQ/L (136-147); TOTAL PROTEIN 5.5 G/DL (6.4-8.3); UREA NITROGEN (BUN) 35 mg/dL (9-23)
[2017-10-23 06:47] LABS: INTER. NORMALIZED RATIO 2.8
[2017-10-23 06:53] LABS: ALT (GPT) 1654 IU/L (3-49); AST (GOT) 575 IU/L (2-34); TOTAL BILIRUBIN 8.9 MG/DL (0.0-1.0)
[2017-10-23 12:57] LABS: ALBUMIN 3.1 G/DL (3.2-4.8); CHLORIDE 99 MEQ/L (99-109); CREATININE 2.2 MG/DL (0.6-1.3); GFR ESTIMATE (CALCULATED) 33 mL/min/ (58.99-99999); GLUCOSE 127 mg/dL (70-99); PHOSPHORUS 2.2 mg/dL (2.5-4.9); POTASSIUM 4.2 MEQ/L (3.7-5.4); SODIUM 134 MEQ/L (136-147); UREA NITROGEN (BUN) 34 mg/dL (9-23)
[2017-10-23 20:00] VITALS: BP 139/78
[2017-10-24] VITALS (7 sets, daily range): BP systolic 115–136; BP diastolic 66–79
[2017-10-24 02:56] LABS: C DIFF TOXIN NEGATIVE (NEGATIVE)
[2017-10-24 04:38] LABS: HEMATOCRIT 34.1 % (38.0-50.0); HEMOGLOBIN 12.3 G/DL (12.5-16.6); MCH 32.5 PG (29.0-34.0); MCHC 36.1 G/DL (30.0-36.0); NRBC (%) 0.6 /100 WBC (0-0); PLATELET COUNT 92 K/uL (156-360); RBC DIS.WIDTH-CV 14.7 % (11.8-14.6); RBC DIS.WIDTH-SD 46.2 % (39-53); RED BLOOD COUNT 3.79 M/uL (4.00-5.50); WHITE BLOOD COUNT 14.5 K/uL (4.1-10.2)
[2017-10-24 04:50] LABS: ALBUMIN 2.8 g/dL (3.2-4.8); CHLORIDE 102 mEq/L (99-109); POTASSIUM 4.4 mEq/L (3.7-5.4); SODIUM 137 mEq/L (136-147)
[2017-10-24 04:53] LABS: GLUCOSE 121 mg/dL (70-99)
[2017-10-24 04:56] LABS: PHOSPHORUS 2.2 mg/dL (2.5-4.9)
[2017-10-24 04:57] LABS: UREA NITROGEN (BUN) 48 mg/dL (9-23)
[2017-10-24 05:06] LABS: GFR ESTIMATE (CALCULATED) 23 mL/min/ (58.99-99999); MAGNESIUM 2.4 mg/dL (1.3-2.7)
[2017-10-24 09:38] LABS: ALBUMIN 2.9 g/dL (3.2-4.8)
[2017-10-24 09:42] LABS: TOTAL BILIRUBIN 10.6 mg/dL (0.0-1.0)
[2017-10-24 09:43] LABS: TOTAL PROTEIN 5.3 g/dL (6.4-8.3)
[2017-10-24 09:44] LABS: ALKALINE PHOSPHATASE 111 IU/L (3-129)
[2017-10-24 09:46] LABS: AST (GOT) 209 IU/L (2-34)
[2017-10-24 09:47] LABS: ALT (GPT) 1242 IU/L (3-49)
[2017-10-24 09:59] LABS: HIGH-SENS C-REACTIVE PROTEIN 1.85 MG/DL (0.02-0.20)
[2017-10-24 14:03] LABS: ALBUMIN 3.27 G/DL (3.6-4.9); ALPHA-1 GLOBULIN 0.33 G/DL (0.15-0.40); ALPHA-2 GLOBULIN 0.44 G/DL (0.45-0.85); BETA-GLOBULIN 0.66 G/DL (0.65-1.15)
[2017-10-25] VITALS: BP 142/79
[2017-10-25 03:00] VITALS: BP 134/74
[2017-10-25 04:00] VITALS: BP 144/79
[2017-10-25 07:00] VITALS: BP 152/89
[2017-10-25 08:53] LABS: HEMATOCRIT 35.4 % (38.0-50.0); HEMOGLOBIN 12.5 G/DL (12.5-16.6); MCHC 35.3 G/DL (30.0-36.0); MCV 90.5 FL (86-99); NRBC (%) 0.4 /100 WBC (0-0); PLATELET COUNT 91 K/uL (156-360); RBC DIS.WIDTH-CV 16.6 % (11.8-14.6); RBC DIS.WIDTH-SD 48.7 % (39-53); RED BLOOD COUNT 3.91 M/uL (4.00-5.50)
[2017-10-25 09:54] LABS: ALBUMIN 3.2 G/DL (3.2-4.8); ALKALINE PHOSPHATASE 96 IU/L (3-129); ALT (GPT) 716 IU/L (3-49); TOTAL BILIRUBIN 8.6 MG/DL (0.0-1.0); TOTAL PROTEIN 5.4 G/DL (6.4-8.3)
[2017-10-25 09:57] LABS: AST (GOT) 93 IU/L (2-34); DIRECT BILIRUBIN 4.8 mg/dL (0.0-0.3)
[2017-10-25 11:01] LABS: ALBUMIN 3.1 G/DL (3.2-4.8); CHLORIDE 101 MEQ/L (99-109); GFR ESTIMATE (CALCULATED) 18 mL/min/ (58.99-99999); GLUCOSE 147 mg/dL (70-99); PHOSPHORUS 2.7 mg/dL (2.5-4.9); SODIUM 142 MEQ/L (136-147); UREA NITROGEN (BUN) 65 mg/dL (9-23)
[2017-10-25 11:03] LABS: CREATININE 3.6 MG/DL (0.6-1.3)
[2017-10-26] VITALS (12 sets, daily range): BP systolic 128–148; BP diastolic 70–82
[2017-10-26 06:54] LABS: HEMATOCRIT 35.8 % (38.0-50.0); HEMOGLOBIN 12.3 G/DL (12.5-16.6); MCH 31.1 PG (29.0-34.0); MCHC 34.4 G/DL (30.0-36.0); MCV 90.6 FL (86-99); NRBC (%) 0.2 /100 WBC (0-0); PLATELET COUNT 70 K/uL (156-360); RBC DIS.WIDTH-CV 16.8 % (11.8-14.6); RBC DIS.WIDTH-SD 48.8 % (39-53); RED BLOOD COUNT 3.95 M/uL (4.00-5.50)
[2017-10-26 07:26] LABS: ALBUMIN 3.2 G/DL (3.2-4.8); CHLORIDE 99 MEQ/L (99-109); CREATININE 3.7 MG/DL (0.6-1.3); GFR ESTIMATE (CALCULATED) 18 mL/min/ (58.99-99999); GLUCOSE 150 mg/dL (70-99); PHOSPHORUS 3.5 mg/dL (2.5-4.9); POTASSIUM 3.8 MEQ/L (3.7-5.4); SODIUM 138 MEQ/L (136-147); UREA NITROGEN (BUN) 73 mg/dL (9-23)
[2017-10-26 07:37] LABS: ALBUMIN 3.2 G/DL (3.2-4.8); ALKALINE PHOSPHATASE 91 IU/L (3-129); ALT (GPT) 447 IU/L (3-49); AST (GOT) 56 IU/L (2-34); DIRECT BILIRUBIN 4.2 mg/dL (0.0-0.3); TOTAL BILIRUBIN 7.5 MG/DL (0.0-1.0); TOTAL PROTEIN 5.4 G/DL (6.4-8.3)
[2017-10-26 18:25] LABS: LIVER/KIDNEY MICROSOMAL ABY+ <=20.0 U (<=20.0)
[2017-10-26 23:26] LABS: MITOCHONDRIAL (M2) ANTIBODIES+ <=20.0 U (<=20.0)
[2017-10-27] VITALS (19 sets, daily range): BP systolic 102–159; BP diastolic 65–100
[2017-10-27 07:04] LABS: HEMATOCRIT 36.7 % (38.0-50.0); MCH 31.5 PG (29.0-34.0); MCHC 35.4 G/DL (30.0-36.0); MCV 88.9 FL (86-99); PLATELET COUNT 60 K/uL (156-360); RBC DIS.WIDTH-CV 17.2 % (11.8-14.6); RBC DIS.WIDTH-SD 48.6 % (39-53); RED BLOOD COUNT 4.13 M/uL (4.00-5.50); WHITE BLOOD COUNT 19.4 K/uL (4.1-10.2)
[2017-10-27 07:28] LABS: ALBUMIN 2.9 G/DL (3.2-4.8); ALKALINE PHOSPHATASE 98 IU/L (3-129); ALT (GPT) 354 IU/L (3-49); AST (GOT) 49 IU/L (2-34); DIRECT BILIRUBIN 3.9 mg/dL (0.0-0.3); TOTAL BILIRUBIN 6.1 MG/DL (0.0-1.0); TOTAL PROTEIN 5.3 G/DL (6.4-8.3)
[2017-10-27 07:33] LABS: CHLORIDE 98 MEQ/L (99-109); GLUCOSE 139 mg/dL (70-99); POTASSIUM 3.8 MEQ/L (3.7-5.4); SODIUM 139 MEQ/L (136-147)
[2017-10-27 07:34] LABS: CREATININE 5.3 MG/DL (0.6-1.3); GFR ESTIMATE (CALCULATED) 12 mL/min/ (58.99-99999); PHOSPHORUS 5.1 mg/dL (2.5-4.9)
[2017-10-27 07:38] LABS: UREA NITROGEN (BUN) 101 mg/dL (9-23)
[2017-10-27 10:54] LABS: HEPATITIS B SURFACE ANTIBODY REACTIVE
[2017-10-28 06:13] LABS: BASOPHIL (%) 0.2 % (0-1); BASOPHIL COUNT 0.1 K/uL (0-0.1); EOSINOPHIL (%) 0 % (0-5); HEMATOCRIT 36.3 % (38.0-50.0); HEMOGLOBIN 12.4 G/DL (12.5-16.6); IMM.PLATELET FRACTION 12.5 (1-7); IMMATURE GRANULOCYTE (%) 1.5 % (0.0-0.7); LYMPHOCYTE (%) 2.7 % (15-42); LYMPHOCYTE COUNT 0.6 K/uL (1.0-2.8); MCH 31.8 PG (29.0-34.0); MCHC 34.2 G/DL (30.0-36.0); MCV 93.1 FL (86-99); MONOCYTE (%) 5.6 % (3-12); MONOCYTE COUNT 1.2 K/uL (0-0.8); NEUTROPHIL COUNT 19.3 K/uL (1.8-6.4); PLATELET COUNT 50 K/uL (156-360); RBC DIS.WIDTH-CV 17.8 % (11.8-14.6); WHITE BLOOD COUNT 21.5 K/uL (4.1-10.2)
[2017-10-28 06:19] LABS: ALBUMIN 3.6 G/DL (3.2-4.8); CHLORIDE 98 MEQ/L (99-109); CREATININE 4.7 MG/DL (0.6-1.3); GFR ESTIMATE (CALCULATED) 14 mL/min/ (58.99-99999); GLUCOSE 125 mg/dL (70-99); MAGNESIUM 2.7 mg/dl (1.3-2.7); SODIUM 139 MEQ/L (136-147); UREA NITROGEN (BUN) 86 mg/dL (9-23)
[2017-10-28 06:20] LABS: PHOSPHORUS 8.2 mg/dL (2.5-4.9); POTASSIUM 4.7 MEQ/L (3.7-5.4)
[2017-10-28 07:06] VITALS: BP 136/83
[2017-10-28 08:00] VITALS: BP 140/82
[2017-10-28 12:00] VITALS: BP 150/82
[2017-10-28 16:00] VITALS: BP 138/79
[2017-10-28 20:00] VITALS: BP 142/88
[2017-10-28 22:33] LABS: BASE EXCESS -1.7 mEq/L (-3 to +3); CARBOXY HGB 2.6 % (0-5); COMMENTS - BLOOD GASES C+A+; DEVICE VENT; FI02 30 %; METHEMOGLOBIN 1.7 % (0-1.5); MODE SPONT; PCO2 38 mm Hg (35-45); PEEP 5 CM/H20; PO2 103 mm Hg (80-100); PRES. SUPPORT 8 CM/H2O; SITE RR; TOTAL RESP RATE 19 resp/min; pH 7.39 (7.35-7.45)
[2017-10-29] VITALS (20 sets, daily range): BP systolic 110–182; BP diastolic 47–102
[2017-10-29 05:28] LABS: HEMATOCRIT 35.1 % (38.0-50.0); HEMOGLOBIN 12.4 G/DL (12.5-16.6); MCH 32.6 PG (29.0-34.0); MCHC 35.3 G/DL (30.0-36.0); MCV 92.4 FL (86-99); PLATELET COUNT 57 K/uL (156-360); RBC DIS.WIDTH-CV 17.9 % (11.8-14.6); RBC DIS.WIDTH-SD 57.4 % (39-53)
[2017-10-29 12:23] LABS: ALBUMIN 3.5 G/DL (3.2-4.8); CHLORIDE 95 MEQ/L (99-109); GFR ESTIMATE (CALCULATED) 10 mL/min/ (58.99-99999); GLUCOSE 137 mg/dL (70-99); PHOSPHORUS 10.2 mg/dL (2.5-4.9); POTASSIUM 4.1 MEQ/L (3.7-5.4); SODIUM 137 MEQ/L (136-147)
[2017-10-29 12:25] LABS: CREATININE 6.2 MG/DL (0.6-1.3); UREA NITROGEN (BUN) 126 mg/dL (9-23)
[2017-10-29 23:53] LABS: BASE EXCESS 1.6 mEq/L (-3 to +3); BICARBONATE 24.6 mEq/L (22-26); CARBOXY HGB 2.8 % (0-5); COMMENTS - BLOOD GASES A+C+; DEVICE VENT; FI02 30 %; METHEMOGLOBIN 1.8 % (0-1.5); MODE SPONT; PCO2 33 mm Hg (35-45); PEEP 5 CM/H20; PO2 111 mm Hg (80-100); PRES. SUPPORT 8 CM/H2O; SITE RR; TOTAL RESP RATE 32 resp/min; pH 7.48 (7.35-7.45)
[2017-10-30] VITALS (24 sets, daily range): BP systolic 91–160; BP diastolic 54–86
[2017-10-30 05:57] LABS: HEMOGLOBIN 12.3 G/DL (12.5-16.6); MCH 32.2 PG (29.0-34.0); MCHC 34.2 G/DL (30.0-36.0); MCV 94.2 FL (86-99); PLATELET COUNT 66 K/uL (156-360); RBC DIS.WIDTH-CV 17.7 % (11.8-14.6); RBC DIS.WIDTH-SD 59.6 % (39-53); RED BLOOD COUNT 3.82 M/uL (4.00-5.50); WHITE BLOOD COUNT 25.1 K/uL (4.1-10.2)
[2017-10-30 06:30] LABS: CHLORIDE 99 MEQ/L (99-109); GFR ESTIMATE (CALCULATED) 13 mL/min/ (58.99-99999); GLUCOSE 144 mg/dL (70-99); PHOSPHORUS 7.5 mg/dL (2.5-4.9); POTASSIUM 4.4 MEQ/L (3.7-5.4); SODIUM 138 MEQ/L (136-147); UREA NITROGEN (BUN) 95 mg/dL (9-23)
[2017-10-30 15:05] LABS: BASE EXCESS 4.2 mEq/L (-3 to +3); BICARBONATE 27.1 mEq/L (22-26); CARBOXY HGB 2.9 % (0-5); METHEMOGLOBIN 1.6 % (0-1.5); PCO2 34 mm Hg (35-45); pH 7.51 (7.35-7.45)
[2017-10-30 15:06] LABS: COMMENTS - BLOOD GASES A+C+; DEVICE T-PIECE; FI02 21 %; O2 FLOW 12 L/MIN; PO2 68 mm Hg (80-100); SITE RR; TOTAL RESP RATE 22 resp/min
[2017-10-31] VITALS (20 sets, daily range): BP systolic 108–167; BP diastolic 55–94
[2017-10-31 05:04] LABS: BASOPHIL (%) 0.2 % (0-1); EOSINOPHIL (%) 0.7 % (0-5); EOSINOPHIL COUNT 0.1 K/uL (0-0.3); HEMATOCRIT 39.1 % (38.0-50.0); HEMOGLOBIN 13.8 G/DL (12.5-16.6); LYMPHOCYTE (%) 5.3 % (15-42); LYMPHOCYTE COUNT 1.1 K/uL (1.0-2.8); MCH 32.9 PG (29.0-34.0); MCHC 35.3 G/DL (30.0-36.0); MCV 93.3 FL (86-99); MONOCYTE (%) 10.2 % (3-12); MONOCYTE COUNT 2.1 K/uL (0-0.8); NEUTROPHIL (%) 82.6 % (45-76); NEUTROPHIL COUNT 16.5 K/uL (1.8-6.4); PLATELET COUNT 70 K/uL (156-360); RBC DIS.WIDTH-CV 17.3 % (11.8-14.6); RBC DIS.WIDTH-SD 57.3 % (39-53); RED BLOOD COUNT 4.19 M/uL (4.00-5.50)
[2017-10-31 05:35] LABS: ALBUMIN 2.9 g/dL (3.2-4.8); CHLORIDE 98 mEq/L (99-109); POTASSIUM 4.1 mEq/L (3.7-5.4); SODIUM 136 mEq/L (136-147)
[2017-10-31 05:36] LABS: MAGNESIUM 2.2 mg/dL (1.3-2.7)
[2017-10-31 05:38] LABS: TOTAL PROTEIN 5.4 g/dL (6.4-8.3)
[2017-10-31 05:41] LABS: ALKALINE PHOSPHATASE 112 IU/L (3-129)
[2017-10-31 05:42] LABS: GFR ESTIMATE (CALCULATED) 16 mL/min/ (58.99-99999); GLUCOSE 91 mg/dL (70-99); PHOSPHORUS 6.7 mg/dL (2.5-4.9); TOTAL BILIRUBIN 4.3 mg/dL (0.0-1.0); UREA NITROGEN (BUN) 73 mg/dL (9-23)
[2017-10-31 05:44] LABS: ALT (GPT) 158 IU/L (3-49)
[2017-10-31 05:45] LABS: ALBUMIN 2.9 g/dL (3.2-4.8); CHLORIDE 98 mEq/L (99-109); POTASSIUM 4.2 mEq/L (3.7-5.4); SODIUM 138 mEq/L (136-147)
[2017-10-31 05:47] LABS: AST (GOT) 30 IU/L (2-34)
[2017-10-31 05:52] LABS: UREA NITROGEN (BUN) 74 mg/dL (9-23)
[2017-10-31 05:57] LABS: GFR ESTIMATE (CALCULATED) 16 mL/min/ (58.99-99999); GLUCOSE 91 mg/dL (70-99); PHOSPHORUS 6.8 mg/dL (2.5-4.9)
[2017-11-01] VITALS (19 sets, daily range): BP systolic 113–185; BP diastolic 63–134
[2017-11-01 05:51] LABS: HEMATOCRIT 38.7 % (38.0-50.0); HEMOGLOBIN 13.4 G/DL (12.5-16.6); MCH 31.8 PG (29.0-34.0); MCHC 34.6 G/DL (30.0-36.0); MCV 91.7 FL (86-99); RBC DIS.WIDTH-CV 17.2 % (11.8-14.6); RBC DIS.WIDTH-SD 55.6 % (39-53); RED BLOOD COUNT 4.22 M/uL (4.00-5.50); WHITE BLOOD COUNT 19.9 K/uL (4.1-10.2)
[2017-11-01 06:21] LABS: ALBUMIN 3.1 G/DL (3.2-4.8); CHLORIDE 95 MEQ/L (99-109); GFR ESTIMATE (CALCULATED) 13 mL/min/ (58.99-99999); GLUCOSE 103 mg/dL (70-99); PHOSPHORUS 7.3 mg/dL (2.5-4.9); SODIUM 135 MEQ/L (136-147)
[2017-11-01 06:26] LABS: CREATININE 4.8 MG/DL (0.6-1.3); UREA NITROGEN (BUN) 108 mg/dL (9-23)
[2017-11-01 06:27] LABS: PLATELET COUNT 108 K/uL (156-360)
[2017-11-02] VITALS (8 sets, daily range): BP systolic 141–176; BP diastolic 72–88
[2017-11-02 05:08] LABS: BASOPHIL (%) 0.1 % (0-1); EOSINOPHIL (%) 1.1 % (0-5); EOSINOPHIL COUNT 0.2 K/uL (0-0.3); HEMATOCRIT 36.5 % (38.0-50.0); HEMOGLOBIN 12.3 G/DL (12.5-16.6); IMMATURE GRANULOCYTE (%) 0.9 % (0.0-0.7); LYMPHOCYTE (%) 5.4 % (15-42); LYMPHOCYTE COUNT 0.9 K/uL (1.0-2.8); MCH 31.5 PG (29.0-34.0); MCHC 33.7 G/DL (30.0-36.0); MCV 93.4 FL (86-99); MONOCYTE (%) 9.2 % (3-12); MONOCYTE COUNT 1.5 K/uL (0-0.8); NEUTROPHIL (%) 83.3 % (45-76); NEUTROPHIL COUNT 13.5 K/uL (1.8-6.4); PLATELET COUNT 125 K/uL (156-360); RBC DIS.WIDTH-CV 17.3 % (11.8-14.6); RED BLOOD COUNT 3.91 M/uL (4.00-5.50); WHITE BLOOD COUNT 16.2 K/uL (4.1-10.2)
[2017-11-02 05:32] LABS: ALBUMIN 2.9 G/DL (3.2-4.8); CHLORIDE 99 MEQ/L (99-109); CREATININE 3.3 MG/DL (0.6-1.3); GFR ESTIMATE (CALCULATED) 20 mL/min/ (58.99-99999); GLUCOSE 108 mg/dL (70-99); PHOSPHORUS 4.6 mg/dL (2.5-4.9); POTASSIUM 3.9 MEQ/L (3.7-5.4); SODIUM 138 MEQ/L (136-147); UREA NITROGEN (BUN) 62 mg/dL (9-23)
[2017-11-02 05:33] LABS: MAGNESIUM 2.1 mg/dl (1.3-2.7)
[2017-11-03 04:07] VITALS: BP 153/75
[2017-11-03 06:16] LABS: BASOPHIL (%) 0.1 % (0-1); EOSINOPHIL COUNT 0.2 K/uL (0-0.3); HEMATOCRIT 29.8 % (38.0-50.0); LYMPHOCYTE (%) 4.5 % (15-42); LYMPHOCYTE COUNT 0.7 K/uL (1.0-2.8); MCH 31.6 PG (29.0-34.0); MCHC 33.9 G/DL (30.0-36.0); MCV 93.1 FL (86-99); MONOCYTE (%) 7.1 % (3-12); NEUTROPHIL (%) 86.3 % (45-76); NEUTROPHIL COUNT 12.5 K/uL (1.8-6.4); PLATELET COUNT 130 K/uL (156-360); RBC DIS.WIDTH-CV 17.2 % (11.8-14.6); RBC DIS.WIDTH-SD 57.4 % (39-53); WHITE BLOOD COUNT 14.5 K/uL (4.1-10.2)
[2017-11-03 06:20] LABS: HEMOGLOBIN 10.1 G/DL (12.5-16.6)
[2017-11-03 06:45] LABS: CHLORIDE 99 MEQ/L (99-109); GFR ESTIMATE (CALCULATED) 14 mL/min/ (58.99-99999); GLUCOSE 91 mg/dL (70-99); MAGNESIUM 2.2 mg/dl (1.3-2.7); PHOSPHORUS 5.8 mg/dL (2.5-4.9); POTASSIUM 4.2 MEQ/L (3.7-5.4); SODIUM 140 MEQ/L (136-147); UREA NITROGEN (BUN) 89 mg/dL (9-23)
[2017-11-03 06:47] LABS: CREATININE 4.7 MG/DL (0.6-1.3)
[2017-11-03 08:00] VITALS: BP 176/82
[2017-11-03 12:15] VITALS: BP 183/95
[2017-11-03 20:51] VITALS: BP 157/68
[2017-11-03 23:45] VITALS: BP 146/65
[2017-11-04 05:13] VITALS: BP 169/77
[2017-11-04 07:30] VITALS: BP 176/83
[2017-11-04 11:31] VITALS: BP 168/75
[2017-11-04 16:04] VITALS: BP 169/77
[2017-11-04 19:57] VITALS: BP 172/79
[2017-11-04 23:20] VITALS: BP 170/80
[2017-11-05 00:21] VITALS: BP 177/88
[2017-11-05 04:40] VITALS: BP 170/82
[2017-11-05 05:14] LABS: APPEARANCE SL.HAZY ((CLEAR)); BILIRUBIN NEGATIVE; BLOOD MODERATE; COLOR YELLOW ((YELLOW)); GLUCOSE (STRIP) NEGATIVE; KETONES NEGATIVE; LEUKOCYTES NEGATIVE; NITRITE NEGATIVE; PROTEIN (STRIP) 30; SPECIFIC GRAVITY 1.012 (1.000-1.030)
[2017-11-05 05:25] LABS: BACTERIA RARE /HPF; EPITHELIAL CELLS RARE /HPF; MUCUS TRACE /LPF; RED BLOOD CELLS 30-40 /HPF (0-5)
[2017-11-05 05:34] LABS: BASOPHIL (%) 0.1 % (0-1); EOSINOPHIL (%) 0.8 % (0-5); EOSINOPHIL COUNT 0.1 K/uL (0-0.3); HEMATOCRIT 24.8 % (38.0-50.0); HEMOGLOBIN 8.4 G/DL (12.5-16.6); IMMATURE GRANULOCYTE (%) 1.1 % (0.0-0.7); LYMPHOCYTE (%) 5.1 % (15-42); LYMPHOCYTE COUNT 0.7 K/uL (1.0-2.8); MCH 31.9 PG (29.0-34.0); MCHC 33.9 G/DL (30.0-36.0); MCV 94.3 FL (86-99); MONOCYTE (%) 6.5 % (3-12); MONOCYTE COUNT 0.9 K/uL (0-0.8); NEUTROPHIL (%) 86.4 % (45-76); PLATELET COUNT 112 K/uL (156-360); RBC DIS.WIDTH-CV 17.5 % (11.8-14.6); RBC DIS.WIDTH-SD 58.6 % (39-53); RED BLOOD COUNT 2.63 M/uL (4.00-5.50); WHITE BLOOD COUNT 13.8 K/uL (4.1-10.2)
[2017-11-05 05:57] LABS: ALKALINE PHOSPHATASE 127 IU/L (3-129); ALT (GPT) 13 IU/L (3-49); AST (GOT) 25 IU/L (2-34); CHLORIDE 100 MEQ/L (99-109); CREATININE 4.7 MG/DL (0.6-1.3); DIRECT BILIRUBIN 1.9 mg/dL (0.0-0.3); GFR ESTIMATE (CALCULATED) 14 mL/min/ (58.99-99999); GLUCOSE 133 mg/dL (70-99); MAGNESIUM 2.2 mg/dl (1.3-2.7); PHOSPHORUS 3.8 mg/dL (2.5-4.9); POTASSIUM 3.7 MEQ/L (3.7-5.4); SODIUM 141 MEQ/L (136-147); TOTAL BILIRUBIN 3.2 MG/DL (0.0-1.0); TOTAL PROTEIN 5.8 G/DL (6.4-8.3); UREA NITROGEN (BUN) 68 mg/dL (9-23)
[2017-11-05 08:25] VITALS: BP 159/82
[2017-11-05 12:35] VITALS: BP 179/83
[2017-11-05 15:45] VITALS: BP 185/89
[2017-11-05 18:12] LABS: C DIFF TOXIN ND (NEGATIVE)
[2017-11-05 20:07] VITALS: BP 141/78
[2017-11-06 00:15] VITALS: BP 155/75
[2017-11-06 04:15] VITALS: BP 156/78
[2017-11-06 07:59] LABS: CHLORIDE 98 MEQ/L (99-109); MAGNESIUM 2.1 mg/dl (1.3-2.7); POTASSIUM 3.5 MEQ/L (3.7-5.4); SODIUM 136 MEQ/L (136-147)
[2017-11-06 08:00] LABS: HEMATOCRIT 25.6 % (38.0-50.0); HEMOGLOBIN 8.8 G/DL (12.5-16.6); MCH 32.2 PG (29.0-34.0); MCHC 34.4 G/DL (30.0-36.0); MCV 93.8 FL (86-99); PLATELET COUNT 124 K/uL (156-360); RBC DIS.WIDTH-CV 17.4 % (11.8-14.6); RBC DIS.WIDTH-SD 58.9 % (39-53); RED BLOOD COUNT 2.73 M/uL (4.00-5.50)
[2017-11-06 08:04] LABS: CREATININE 5.3 MG/DL (0.6-1.3); GFR ESTIMATE (CALCULATED) 12 mL/min/ (58.99-99999); GLUCOSE 144 mg/dL (70-99); PHOSPHORUS 3.1 mg/dL (2.5-4.9); UREA NITROGEN (BUN) 84 mg/dL (9-23)
[2017-11-06 08:23] LABS: BASOPHIL (%) 0.1 % (0-1); EOSINOPHIL (%) 0.3 % (0-5); IMMATURE GRANULOCYTE (%) 0.4 % (0.0-0.7); LYMPHOCYTE (%) 3.1 % (15-42); LYMPHOCYTE COUNT 0.4 K/uL (1.0-2.8); MONOCYTE COUNT 0.6 K/uL (0-0.8); NEUTROPHIL (%) 92.1 % (45-76); NEUTROPHIL COUNT 12.9 K/uL (1.8-6.4)
[2017-11-06 11:05] LABS: IRON 14 MCG/DL (35-150); TRANSFERRIN (TIBC) 141.6 mg/dL (215-380); TRANSFERRIN SATUR. 10 % (20-55)
[2017-11-06 11:55] VITALS: BP 168/83
[2017-11-06 16:08] VITALS: BP 143/71
[2017-11-06 19:48] VITALS: BP 170/83
[2017-11-07] VITALS (7 sets, daily range): BP systolic 123–162; BP diastolic 56–74
[2017-11-07 05:42] LABS: RED BLOOD COUNT 2.44 M/uL (4.00-5.50); WHITE BLOOD COUNT 11.9 K/uL (4.1-10.2)
[2017-11-07 05:43] LABS: BASOPHIL (%) 0.3 % (0-1); EOSINOPHIL (%) 1.6 % (0-5); EOSINOPHIL COUNT 0.2 K/uL (0-0.3); HEMATOCRIT 23.3 % (38.0-50.0); IMMATURE GRANULOCYTE (%) 0.4 % (0.0-0.7); LYMPHOCYTE (%) 6.5 % (15-42); LYMPHOCYTE COUNT 0.8 K/uL (1.0-2.8); MCH 32.8 PG (29.0-34.0); MCHC 34.3 G/DL (30.0-36.0); MCV 95.5 FL (86-99); MONOCYTE (%) 7.4 % (3-12); MONOCYTE COUNT 0.9 K/uL (0-0.8); NEUTROPHIL (%) 83.8 % (45-76); PLATELET COUNT 101 K/uL (156-360); RBC DIS.WIDTH-CV 17.9 % (11.8-14.6); RBC DIS.WIDTH-SD 60.9 % (39-53)
[2017-11-07 06:00] LABS: CHLORIDE 100 MEQ/L (99-109); POTASSIUM 3.6 MEQ/L (3.7-5.4); SODIUM 135 MEQ/L (136-147); UREA NITROGEN (BUN) 48 mg/dL (9-23)
[2017-11-07 06:03] LABS: CREATININE 3.8 MG/DL (0.6-1.3); GFR ESTIMATE (CALCULATED) 17 mL/min/ (58.99-99999); GLUCOSE 92 mg/dL (70-99)
[2017-11-07 09:49] LABS: ALBUMIN 2.5 G/DL (3.2-4.8); ALKALINE PHOSPHATASE 114 IU/L (3-129); ALT (GPT) 5 IU/L (3-49); AST (GOT) 16 IU/L (2-34); DIRECT BILIRUBIN 1.4 mg/dL (0.0-0.3); TOTAL BILIRUBIN 2.6 MG/DL (0.0-1.0); TOTAL PROTEIN 5.6 G/DL (6.4-8.3)
[2017-11-07 09:57] LABS: INTER. NORMALIZED RATIO 1.2
[2017-11-07 15:37] LABS: PHOSPHORUS 2.4 mg/dL (2.5-4.9)
[2017-11-08 01:20] VITALS: BP 151/70
[2017-11-08 05:02] VITALS: BP 142/63
[2017-11-08 05:41] LABS: HEMATOCRIT 23.5 % (38.0-50.0); HEMOGLOBIN 7.8 G/DL (12.5-16.6); MCH 31.5 PG (29.0-34.0); MCHC 33.2 G/DL (30.0-36.0); MCV 94.8 FL (86-99); PLATELET COUNT 105 K/uL (156-360); RBC DIS.WIDTH-CV 17.9 % (11.8-14.6); RBC DIS.WIDTH-SD 61.1 % (39-53); RED BLOOD COUNT 2.48 M/uL (4.00-5.50)
[2017-11-08 05:52] LABS: INTER. NORMALIZED RATIO 1.2
[2017-11-08 06:04] LABS: ALBUMIN 2.7 G/DL (3.2-4.8); ALKALINE PHOSPHATASE 132 IU/L (3-129); ALT (GPT) 6 IU/L (3-49); AST (GOT) 14 IU/L (2-34); CHLORIDE 100 MEQ/L (99-109); GFR ESTIMATE (CALCULATED) 13 mL/min/ (58.99-99999); GLUCOSE 104 mg/dL (70-99); PHOSPHORUS 2.4 mg/dL (2.5-4.9); POTASSIUM 3.7 MEQ/L (3.7-5.4); SODIUM 135 MEQ/L (136-147); TOTAL BILIRUBIN 2.5 MG/DL (0.0-1.0); TOTAL PROTEIN 6.4 G/DL (6.4-8.3); UREA NITROGEN (BUN) 63 mg/dL (9-23)
[2017-11-08 06:16] LABS: ABS NEUTROPHIL COUNT 11.4; ANISOCYTOSIS 1+; BAND NEUTROPHILS 0.9 % (0-8.0); BURR CELLS 1+; EOSINOPHIL ABS CT 0; HELMET CELLS 1+; HYPOCHROMASIA 1+; LYMPHOCYTES 2.6 % (15.0-45.0); MACROCYTES 1+; MONOCYTES 2.6 % (0-9.0); PLAT.SUFFICIENCY DECREASED; SEG.NEUTROPHILS 93.9 % (46.0-76.0); TARGET CELLS 1+
[2017-11-08 12:15] VITALS: BP 147/63
[2017-11-08 15:45] VITALS: BP 138/62
[2017-11-08 20:30] VITALS: BP 164/78
[2017-11-08 20:40] LABS: C DIFF TOXIN POSITIVE (NEGATIVE)
[2017-11-08 23:29] VITALS: BP 156/71
[2017-11-09 03:40] VITALS: BP 133/71
[2017-11-09 06:06] LABS: HEMATOCRIT 27.4 % (38.0-50.0); HEMOGLOBIN 9.1 G/DL (12.5-16.6); MCH 31.8 PG (29.0-34.0); MCHC 33.2 G/DL (30.0-36.0); MCV 95.8 FL (86-99); RBC DIS.WIDTH-CV 18.2 % (11.8-14.6); RED BLOOD COUNT 2.86 M/uL (4.00-5.50); WHITE BLOOD COUNT 13.1 K/uL (4.1-10.2)
[2017-11-09 06:09] LABS: PLATELET COUNT 137 K/uL (156-360)
[2017-11-09 06:13] LABS: INTER. NORMALIZED RATIO 1.3
[2017-11-09 06:30] LABS: ALBUMIN 2.6 G/DL (3.2-4.8); ALKALINE PHOSPHATASE 138 IU/L (3-129); ALT (GPT) 6 IU/L (3-49); AST (GOT) 14 IU/L (2-34); CHLORIDE 101 MEQ/L (99-109); DIRECT BILIRUBIN 1.5 mg/dL (0.0-0.3); GLUCOSE 93 mg/dL (70-99); SODIUM 137 MEQ/L (136-147); TOTAL BILIRUBIN 2.7 MG/DL (0.0-1.0); TOTAL PROTEIN 6.4 G/DL (6.4-8.3); UREA NITROGEN (BUN) 38 mg/dL (9-23)
[2017-11-09 06:37] LABS: GFR ESTIMATE (CALCULATED) 16 mL/min/ (58.99-99999); POTASSIUM 4.7 MEQ/L (3.7-5.4)
[2017-11-09 06:47] LABS: BASOPHIL (%) 0.3 % (0-1); EOSINOPHIL (%) 0.5 % (0-5); EOSINOPHIL COUNT 0.1 K/uL (0-0.3); IMMATURE GRANULOCYTE (%) 1.5 % (0.0-0.7); LYMPHOCYTE (%) 5.2 % (15-42); LYMPHOCYTE COUNT 0.7 K/uL (1.0-2.8); MONOCYTE (%) 8.1 % (3-12); MONOCYTE COUNT 1.1 K/uL (0-0.8); NEUTROPHIL (%) 84.4 % (45-76)
[2017-11-09 07:11] VITALS: BP 133/66
[2017-11-09 11:36] VITALS: BP 130/68
[2017-11-09 16:00] VITALS: BP 128/66
[2017-11-09 18:53] VITALS: BP 128/66
[2017-11-09 18:56] VITALS: BP 123/64
[2017-11-10] VITALS (8 sets, daily range): BP systolic 90–142; BP diastolic 50–70
[2017-11-10 06:06] LABS: HEMATOCRIT 26.7 % (38.0-50.0); HEMOGLOBIN 8.8 G/DL (12.5-16.6); MCH 31.4 PG (29.0-34.0); MCV 95.4 FL (86-99); PLATELET COUNT 163 K/uL (156-360); RBC DIS.WIDTH-CV 18.4 % (11.8-14.6); RBC DIS.WIDTH-SD 60.6 % (39-53); WHITE BLOOD COUNT 5.5 K/uL (4.1-10.2)
[2017-11-10 06:31] LABS: ALBUMIN 2.3 G/DL (3.2-4.8); ALKALINE PHOSPHATASE 109 IU/L (3-129); ALT (GPT) 6 IU/L (3-49); AST (GOT) 13 IU/L (2-34); CHLORIDE 101 MEQ/L (99-109); GLUCOSE 107 mg/dL (70-99); POTASSIUM 4.6 MEQ/L (3.7-5.4); SODIUM 137 MEQ/L (136-147); TOTAL PROTEIN 5.8 G/DL (6.4-8.3); UREA NITROGEN (BUN) 55 mg/dL (9-23)
[2017-11-10 06:32] LABS: CREATININE 5.4 MG/DL (0.6-1.3); GFR ESTIMATE (CALCULATED) 12 mL/min/ (58.99-99999); PHOSPHORUS 4.2 mg/dL (2.5-4.9); TOTAL BILIRUBIN 2.1 MG/DL (0.0-1.0)
[2017-11-10 06:37] LABS: BASOPHIL (%) 0.4 % (0-1); EOSINOPHIL (%) 1.5 % (0-5); EOSINOPHIL COUNT 0.1 K/uL (0-0.3); IMMATURE GRANULOCYTE (%) 1.8 % (0.0-0.7); LYMPHOCYTE (%) 12.4 % (15-42); LYMPHOCYTE COUNT 0.7 K/uL (1.0-2.8); MONOCYTE (%) 7.7 % (3-12); MONOCYTE COUNT 0.4 K/uL (0-0.8); NEUTROPHIL (%) 76.2 % (45-76); NEUTROPHIL COUNT 4.2 K/uL (1.8-6.4); PLAT.SUFFICIENCY ADEQUATE
[2017-11-11 04:35] VITALS: BP 131/53
[2017-11-11 06:27] LABS: HEMATOCRIT 29.4 % (38.0-50.0); HEMOGLOBIN 9.6 G/DL (12.5-16.6); MCH 31.6 PG (29.0-34.0); MCHC 32.7 G/DL (30.0-36.0); MCV 96.7 FL (86-99); RBC DIS.WIDTH-CV 19.8 % (11.8-14.6); RBC DIS.WIDTH-SD 64.8 % (39-53); RED BLOOD COUNT 3.04 M/uL (4.00-5.50); WHITE BLOOD COUNT 16.1 K/uL (4.1-10.2)
[2017-11-11 06:41] LABS: CHLORIDE 99 MEQ/L (99-109); GFR ESTIMATE (CALCULATED) 16 mL/min/ (58.99-99999); GLUCOSE 120 mg/dL (70-99); PLATELET COUNT 235 K/uL (156-360); SODIUM 134 MEQ/L (136-147); UREA NITROGEN (BUN) 35 mg/dL (9-23)
[2017-11-11 06:49] LABS: CREATININE 4.1 MG/DL (0.6-1.3)
[2017-11-11 07:02] VITALS: BP 103/56
[2017-11-11 07:03] LABS: ABS NEUTROPHIL COUNT 14.4; ANISOCYTOSIS 2+; BAND NEUTROPHILS 16.5 % (0-8.0); BASOPH.STIPPLING 1+; EOSINOPHIL ABS CT 0; HYPOCHROMASIA 2+; MACROCYTES 1+; MICROCYTOSIS 1+; MONOCYTES 3.5 % (0-9.0); PLAT.SUFFICIENCY ADEQUATE; POIKILOCYTOSIS 1+; POLYCHROMASIA 1+; SPHEROCYTES 1+
[2017-11-11 11:10] VITALS: BP 111/67
[2017-11-11 15:05] VITALS: BP 138/72
[2017-11-11 20:15] VITALS: BP 110/67
[2017-11-12] VITALS (7 sets, daily range): BP systolic 108–137; BP diastolic 63–73
[2017-11-12 06:35] LABS: HEMATOCRIT 26.6 % (38.0-50.0); MCH 32.3 PG (29.0-34.0); MCHC 33.8 G/DL (30.0-36.0); MCV 95.3 FL (86-99); PLATELET COUNT 267 K/uL (156-360); RBC DIS.WIDTH-SD 66.7 % (39-53); RED BLOOD COUNT 2.79 M/uL (4.00-5.50); WHITE BLOOD COUNT 18.1 K/uL (4.1-10.2)
[2017-11-12 07:02] LABS: ABS NEUTROPHIL COUNT 17.3; ALBUMIN 2.1 G/DL (3.2-4.8); ALKALINE PHOSPHATASE 93 IU/L (3-129); ALT (GPT) 5 IU/L (3-49); ANISOCYTOSIS 2+; AST (GOT) 14 IU/L (2-34); CHLORIDE 99 MEQ/L (99-109); EOSINOPHIL ABS CT 0; GFR ESTIMATE (CALCULATED) 12 mL/min/ (58.99-99999); GLUCOSE 110 mg/dL (70-99); LYMPHOCYTES 1.7 % (15.0-45.0); MACROCYTES 1+; MAGNESIUM 1.9 mg/dl (1.3-2.7); METAMYELOCYTES 0.9 %; MONOCYTES 1.7 % (0-9.0); POTASSIUM 4.7 MEQ/L (3.7-5.4); SEG.NEUTROPHILS 76.7 % (46.0-76.0); SODIUM 135 MEQ/L (136-147); TOTAL BILIRUBIN 1.9 MG/DL (0.0-1.0); TOTAL PROTEIN 5.4 G/DL (6.4-8.3)
[2017-11-12 07:03] LABS: CREATININE 5.4 MG/DL (0.6-1.3); UREA NITROGEN (BUN) 56 mg/dL (9-23)
[2017-11-12 14:05] LABS: APPEARANCE SL.HAZY ((CLEAR)); BILIRUBIN NEGATIVE; BLOOD SMALL; GLUCOSE (STRIP) NEGATIVE; KETONES NEGATIVE; LEUKOCYTES TRACE; NITRITE NEGATIVE; PROTEIN (STRIP) 30; SPECIFIC GRAVITY 1.016 (1.000-1.030); UROBILINOGEN 0.2 MG/DL (0.2-1.0)
[2017-11-12 14:53] LABS: BACTERIA RARE /HPF; EPITHELIAL CELLS RARE /HPF; MUCUS TRACE /LPF; RED BLOOD CELLS 0-5 /HPF (0-5); UCUL ADDED? YES
[2017-11-12 14:54] LABS: COLOR DK YELLOW ((YELLOW))
[2017-11-13 03:29] VITALS: BP 110/68
[2017-11-13 07:11] VITALS: BP 130/69
[2017-11-13 08:00] LABS: HEMATOCRIT 27.2 % (38.0-50.0); HEMOGLOBIN 9.2 G/DL (12.5-16.6); MCH 32.9 PG (29.0-34.0); MCHC 33.8 G/DL (30.0-36.0); MCV 97.1 FL (86-99); RBC DIS.WIDTH-CV 20.7 % (11.8-14.6); RBC DIS.WIDTH-SD 70.3 % (39-53); WHITE BLOOD COUNT 23.1 K/uL (4.1-10.2)
[2017-11-13 08:10] LABS: ALBUMIN 2.3 G/DL (3.2-4.8); CHLORIDE 97 MEQ/L (99-109); POTASSIUM 4.7 MEQ/L (3.7-5.4); SODIUM 135 MEQ/L (136-147)
[2017-11-13 08:17] LABS: GFR ESTIMATE (CALCULATED) 9 mL/min/ (58.99-99999); GLUCOSE 124 mg/dL (70-99); PHOSPHORUS 5.4 mg/dL (2.5-4.9); UREA NITROGEN (BUN) 74 mg/dL (9-23)
[2017-11-13 08:19] LABS: PLATELET COUNT 352 K/uL (156-360)
[2017-11-13 08:23] LABS: CREATININE 6.6 MG/DL (0.6-1.3)
[2017-11-13 12:19] VITALS: BP 150/74
[2017-11-13 15:22] VITALS: BP 114/66
[2017-11-13 19:27] VITALS: BP 138/63
[2017-11-13 23:22] VITALS: BP 133/85
[2017-11-14 03:53] VITALS: BP 123/68
[2017-11-14 06:46] LABS: HEMATOCRIT 32.4 % (38.0-50.0); HEMOGLOBIN 10.5 G/DL (12.5-16.6); MCH 32.1 PG (29.0-34.0); MCHC 32.4 G/DL (30.0-36.0); MCV 99.1 FL (86-99); NRBC (%) 0.1 /100 WBC (0-0); RBC DIS.WIDTH-CV 21.1 % (11.8-14.6); RBC DIS.WIDTH-SD 73.8 % (39-53); RED BLOOD COUNT 3.27 M/uL (4.00-5.50); WHITE BLOOD COUNT 24.3 K/uL (4.1-10.2)
[2017-11-14 06:47] LABS: PLATELET COUNT 471 K/uL (156-360)
[2017-11-14 07:24] LABS: BASOPHIL (%) 0.5 % (0-1); BASOPHIL COUNT 0.1 K/uL (0-0.1); EOSINOPHIL (%) 0.1 % (0-5); HEMATOLOGY COMMENT 1 SMEAR COMPATIBLE; IMMATURE GRANULOCYTE (%) 2.4 % (0.0-0.7); LYMPHOCYTE (%) 3.3 % (15-42); LYMPHOCYTE COUNT 0.8 K/uL (1.0-2.8); MONOCYTE COUNT 2.4 K/uL (0-0.8); NEUTROPHIL (%) 83.7 % (45-76); NEUTROPHIL COUNT 20.3 K/uL (1.8-6.4)
[2017-11-14 07:39] LABS: ALKALINE PHOSPHATASE 102 IU/L (3-129); ALT (GPT) 3 IU/L (3-49); AST (GOT) 17 IU/L (2-34); CHLORIDE 99 MEQ/L (99-109); GLUCOSE 94 mg/dL (70-99); POTASSIUM 5.2 MEQ/L (3.7-5.4); SODIUM 137 MEQ/L (136-147); TOTAL BILIRUBIN 1.7 MG/DL (0.0-1.0); TOTAL PROTEIN 5.6 G/DL (6.4-8.3); UREA NITROGEN (BUN) 46 mg/dL (9-23)
[2017-11-14 07:45] VITALS: BP 114/59
[2017-11-14 07:45] LABS: CREATININE 4.6 MG/DL (0.6-1.3); DIRECT BILIRUBIN 0.7 mg/dL (0.0-0.3); GFR ESTIMATE (CALCULATED) 14 mL/min/ (58.99-99999); MAGNESIUM 2.6 mg/dl (1.3-2.7)
[2017-11-14 11:46] VITALS: BP 110/65
[2017-11-14 16:06] VITALS: BP 116/62
[2017-11-14 19:34] VITALS: BP 125/71
[2017-11-14 23:19] VITALS: BP 129/65
[2017-11-15 03:22] VITALS: BP 121/64
[2017-11-15 07:33] VITALS: BP 121/69
[2017-11-15 08:00] LABS: HEMATOCRIT 29.8 % (38.0-50.0); HEMOGLOBIN 9.8 G/DL (12.5-16.6); MCH 32.7 PG (29.0-34.0); MCHC 32.9 G/DL (30.0-36.0); MCV 99.3 FL (86-99); PLATELET COUNT 520 K/uL (156-360); RBC DIS.WIDTH-CV 21.3 % (11.8-14.6); RBC DIS.WIDTH-SD 74.4 % (39-53); WHITE BLOOD COUNT 19.9 K/uL (4.1-10.2)
[2017-11-15 08:10] LABS: ALBUMIN 2.1 G/DL (3.2-4.8); CHLORIDE 100 MEQ/L (99-109); MAGNESIUM 2.9 mg/dl (1.3-2.7); POTASSIUM 4.6 MEQ/L (3.7-5.4); SODIUM 139 MEQ/L (136-147)
[2017-11-15 08:30] LABS: GFR ESTIMATE (CALCULATED) 12 mL/min/ (58.99-99999); GLUCOSE 104 mg/dL (70-99); PHOSPHORUS 6.4 mg/dL (2.5-4.9); UREA NITROGEN (BUN) 65 mg/dL (9-23)
[2017-11-15 08:31] LABS: CREATININE 5.4 MG/DL (0.6-1.3)
[2017-11-15 19:48] LABS: ALBUMIN 2.6 G/DL (3.2-4.8); CHLORIDE 105 MEQ/L (99-109); POTASSIUM 4.9 MEQ/L (3.7-5.4); SODIUM 139 MEQ/L (136-147); TOTAL BILIRUBIN 1.6 MG/DL (0.0-1.0)
[2017-11-15 19:58] LABS: TROP-I INTERPRETATION NEGATIVE; TROPONIN-I 0.02 ng/mL (0.0-0.30)
[2017-11-15 20:12] LABS: ALT (GPT) 5 IU/L (3-49); AST (GOT) 14 IU/L (2-34); GLUCOSE 106 mg/dL (70-99); TOTAL PROTEIN 5.6 G/DL (6.4-8.3); UREA NITROGEN (BUN) 34 mg/dL (9-23)
[2017-11-15 20:47] LABS: ALKALINE PHOSPHATASE 71 IU/L (3-129); CREATININE 3.6 MG/DL (0.6-1.3); GFR ESTIMATE (CALCULATED) 18 mL/min/ (58.99-99999)
[2017-11-15 23:00] VITALS: BP 103/65
[2017-11-16] VITALS (22 sets, daily range): BP systolic 84–122; BP diastolic 58–76
[2017-11-16 04:35] LABS: HEMATOCRIT 26.7 % (38.0-50.0); HEMOGLOBIN 8.7 G/DL (12.5-16.6); MCH 33.1 PG (29.0-34.0); MCHC 32.6 G/DL (30.0-36.0); MCV 101.5 FL (86-99); NRBC (%) 0.1 /100 WBC (0-0); PLATELET COUNT 395 K/uL (156-360); RED BLOOD COUNT 2.63 M/uL (4.00-5.50); WHITE BLOOD COUNT 16.3 K/uL (4.1-10.2)
[2017-11-16 04:45] LABS: CHLORIDE 108 mEq/L (99-109); POTASSIUM 5.7 mEq/L (3.7-5.4); SODIUM 141 mEq/L (136-147)
[2017-11-16 04:47] LABS: GLUCOSE 136 mg/dL (70-99)
[2017-11-16 04:51] LABS: CREATININE 3.8 mg/dL (0.6-1.3); GFR ESTIMATE (CALCULATED) 17 mL/min/ (58.99-99999)
[2017-11-16 04:52] LABS: UREA NITROGEN (BUN) 42 mg/dL (9-23)
[2017-11-16 16:15] LABS: CHLORIDE 106 MEQ/L (99-109); SODIUM 141 MEQ/L (136-147)
[2017-11-16 16:21] LABS: CREATININE 3.9 MG/DL (0.6-1.3); GFR ESTIMATE (CALCULATED) 17 mL/min/ (58.99-99999); GLUCOSE 108 mg/dL (70-99); UREA NITROGEN (BUN) 46 mg/dL (9-23)
[2017-11-17] VITALS (20 sets, daily range): BP systolic 78–121; BP diastolic 58–84
[2017-11-17 05:06] LABS: HEMATOCRIT 29.7 % (38.0-50.0); HEMOGLOBIN 9.7 G/DL (12.5-16.6); MCH 33.1 PG (29.0-34.0); MCHC 32.7 G/DL (30.0-36.0); MCV 101.4 FL (86-99); NRBC (%) 0.1 /100 WBC (0-0); PLATELET COUNT 498 K/uL (156-360); RBC DIS.WIDTH-CV 22.7 % (11.8-14.6); RBC DIS.WIDTH-SD 79.6 % (39-53); RED BLOOD COUNT 2.93 M/uL (4.00-5.50); WHITE BLOOD COUNT 21.2 K/uL (4.1-10.2)
[2017-11-17 05:21] LABS: ALBUMIN 2.4 g/dL (3.2-4.8)
[2017-11-17 05:22] LABS: CHLORIDE 106 mEq/L (99-109); POTASSIUM 4.7 mEq/L (3.7-5.4); SODIUM 141 mEq/L (136-147)
[2017-11-17 05:24] LABS: GLUCOSE 102 mg/dL (70-99)
[2017-11-17 05:27] LABS: PHOSPHORUS 4.8 mg/dL (2.5-4.9)
[2017-11-17 05:28] LABS: CREATININE 4.3 mg/dL (0.6-1.3); GFR ESTIMATE (CALCULATED) 15 mL/min/ (58.99-99999)
[2017-11-17 05:29] LABS: UREA NITROGEN (BUN) 53 mg/dL (9-23)
[2017-11-18] VITALS (23 sets, daily range): BP systolic 92–133; BP diastolic 70–99
[2017-11-18 06:56] LABS: HEMATOCRIT 33.3 % (38.0-50.0); HEMOGLOBIN 11.1 G/DL (12.5-16.6); MCH 33.5 PG (29.0-34.0); MCHC 33.3 G/DL (30.0-36.0); MCV 100.6 FL (86-99); PLATELET COUNT 476 K/uL (156-360); RBC DIS.WIDTH-CV 21.8 % (11.8-14.6); RBC DIS.WIDTH-SD 77.6 % (39-53); RED BLOOD COUNT 3.31 M/uL (4.00-5.50)
[2017-11-18 10:30] LABS: ABS NEUTROPHIL COUNT 18.2; BAND NEUTROPHILS 2.8 % (0-8.0); EOSINOPHIL ABS CT 0; LYMPHOCYTES 1.8 % (15.0-45.0); METAMYELOCYTES 0.9 %; MYELOCYTES 3.7 %; SEG.NEUTROPHILS 79.8 % (46.0-76.0); SMUDGE CELLS 3.7
[2017-11-19] VITALS (19 sets, daily range): BP systolic 67–122; BP diastolic 46–96
[2017-11-19 06:25] LABS: PLATELET COUNT 577 K/uL (156-360)
[2017-11-19 06:27] LABS: HEMATOCRIT 36.8 % (38.0-50.0); HEMOGLOBIN 11.8 G/DL (12.5-16.6); MCH 32.5 PG (29.0-34.0); MCHC 32.1 G/DL (30.0-36.0); MCV 101.4 FL (86-99); RBC DIS.WIDTH-CV 20.9 % (11.8-14.6); RED BLOOD COUNT 3.63 M/uL (4.00-5.50)
[2017-11-19 06:41] LABS: WHITE BLOOD COUNT 30.5 K/uL (4.1-10.2)
[2017-11-19 07:01] LABS: CHLORIDE 103 MEQ/L (99-109); POTASSIUM 4.7 MEQ/L (3.7-5.4); SODIUM 138 MEQ/L (136-147); UREA NITROGEN (BUN) 34 mg/dL (9-23)
[2017-11-19 07:07] LABS: CREATININE 2.3 MG/DL (0.6-1.3); GFR ESTIMATE (CALCULATED) 31 mL/min/ (58.99-99999); GLUCOSE 176 mg/dL (70-99)
[2017-11-20] VITALS (26 sets, daily range): BP systolic 67–124; BP diastolic 47–70
[2017-11-20 05:08] LABS: HEMATOCRIT 29.8 % (38.0-50.0); MCH 33.3 PG (29.0-34.0); MCHC 32.6 G/DL (30.0-36.0); MCV 102.4 FL (86-99); PLATELET COUNT 421 K/uL (156-360); RBC DIS.WIDTH-CV 21.1 % (11.8-14.6); RBC DIS.WIDTH-SD 77.7 % (39-53); RED BLOOD COUNT 2.91 M/uL (4.00-5.50); WHITE BLOOD COUNT 27.4 K/uL (4.1-10.2)
[2017-11-20 05:11] LABS: CHLORIDE 105 mEq/L (99-109)
[2017-11-20 05:12] LABS: POTASSIUM 4.8 mEq/L (3.7-5.4); SODIUM 140 mEq/L (136-147)
[2017-11-20 05:17] LABS: CREATININE 2.3 mg/dL (0.6-1.3); GFR ESTIMATE (CALCULATED) 31 mL/min/ (58.99-99999); PHOSPHORUS 4.9 mg/dL (2.5-4.9)
[2017-11-20 05:18] LABS: UREA NITROGEN (BUN) 36 mg/dL (9-23)
[2017-11-20 05:24] LABS: HEMOGLOBIN 9.7 G/DL (12.5-16.6)
[2017-11-20 05:34] LABS: GLUCOSE 109 mg/dL (70-99)
[2017-11-20 07:31] LABS: ABS NEUTROPHIL COUNT 24.1; ANISOCYTOSIS 1+; ATYPICAL LYMPHOCYTE 0.9 %; BAND NEUTROPHILS 4.4 % (0-8.0); BASOPH.STIPPLING 1+; EOSINOPHIL ABS CT 0; LYMPHOCYTES 1.7 % (15.0-45.0); MACROCYTES 1+; METAMYELOCYTES 1.7 %; MONOCYTES 6.1 % (0-9.0); MYELOCYTES 1.7 %; PLAT.SUFFICIENCY INCREASED; POLYCHROMASIA 1+; SEG.NEUTROPHILS 83.5 % (46.0-76.0)
[2017-11-20 16:27] LABS: TYPE OF FLUID PLEURAL
[2017-11-20 17:05] LABS: APPEARANCE YELLOW-CLEAR; BODY FLUID RBC'S < 1000 /MM^3 (0-100); BODY FLUID WBC'S 314 /MM^3 (0-500)
[2017-11-20 17:46] LABS: BODY FLUID EOSINOPHILS 0 % (0-25); MONONUCLEAR WBC'S 27 %; POLYNUCLEAR WBC'S 73 % (0-25)
[2017-11-21] VITALS (14 sets, daily range): BP systolic 92–148; BP diastolic 49–86
[2017-11-21 05:59] LABS: ALBUMIN 2.1 G/DL (3.2-4.8); ALT (GPT) 8 IU/L (3-49); AST (GOT) 19 IU/L (2-34); CHLORIDE 104 MEQ/L (99-109); GLUCOSE 95 mg/dL (70-99); POTASSIUM 4.6 MEQ/L (3.7-5.4); SODIUM 138 MEQ/L (136-147); TOTAL PROTEIN 4.9 G/DL (6.4-8.3); UREA NITROGEN (BUN) 22 mg/dL (9-23)
[2017-11-21 06:02] LABS: ALKALINE PHOSPHATASE 164 IU/L (3-129); CREATININE 1.6 MG/DL (0.6-1.3); GFR ESTIMATE (CALCULATED) 47 mL/min/ (58.99-99999); MAGNESIUM 1.6 mg/dl (1.3-2.7); PHOSPHORUS 3.1 mg/dL (2.5-4.9); TOTAL BILIRUBIN 0.9 MG/DL (0.0-1.0)
[2017-11-21 06:13] LABS: HEMATOCRIT 32.7 % (38.0-50.0); HEMOGLOBIN 10.3 G/DL (12.5-16.6); MCH 32.3 PG (29.0-34.0); MCHC 31.5 G/DL (30.0-36.0); MCV 102.5 FL (86-99); NRBC (%) 0.1 /100 WBC (0-0); PLATELET COUNT 438 K/uL (156-360); RBC DIS.WIDTH-CV 20.8 % (11.8-14.6); RBC DIS.WIDTH-SD 75.7 % (39-53); RED BLOOD COUNT 3.19 M/uL (4.00-5.50)
[2017-11-21 06:25] LABS: DIGOXIN 1.7 ng/mL (0.8-2.0)
[2017-11-21 06:59] LABS: ABS NEUTROPHIL COUNT 22.8; ANISOCYTOSIS 2+; ATYPICAL LYMPHOCYTE 0.5 %; BAND NEUTROPHILS 8.3 % (0-8.0); BASOPH.STIPPLING 1+; EOSINOPHIL ABS CT 0; LYMPHOCYTES 2.6 % (15.0-45.0); MACROCYTES 2+; METAMYELOCYTES 1.3 %; MONOCYTES 4.4 % (0-9.0); MYELOCYTES 3.5 %; POLYCHROMASIA 2+; SEG.NEUTROPHILS 79.4 % (46.0-76.0)
[2017-11-22 00:21] VITALS: BP 144/70
[2017-11-22 04:12] VITALS: BP 148/76
[2017-11-22 06:50] LABS: ALBUMIN 2.3 G/DL (3.2-4.8); CHLORIDE 103 MEQ/L (99-109); CREATININE 1.9 MG/DL (0.6-1.3); GFR ESTIMATE (CALCULATED) 38 mL/min/ (58.99-99999); GLUCOSE 77 mg/dL (70-99); PHOSPHORUS 3.4 mg/dL (2.5-4.9); POTASSIUM 4.7 MEQ/L (3.7-5.4); SODIUM 137 MEQ/L (136-147); UREA NITROGEN (BUN) 31 mg/dL (9-23)
[2017-11-22 07:45] VITALS: BP 154/83
[2017-11-22 12:05] VITALS: BP 144/86
[2017-11-22 14:47] VITALS: BP 134/84
[2017-11-22 20:40] VITALS: BP 153/81
[2017-11-23 00:32] VITALS: BP 146/87
[2017-11-23 04:39] VITALS: BP 145/73
[2017-11-23 05:21] LABS: ALBUMIN 2.4 g/dL (3.2-4.8)
[2017-11-23 05:22] LABS: CHLORIDE 106 mEq/L (99-109); POTASSIUM 4.3 mEq/L (3.7-5.4); SODIUM 144 mEq/L (136-147)
[2017-11-23 05:27] LABS: GLUCOSE 104 mg/dL (70-99); PHOSPHORUS 4.1 mg/dL (2.5-4.9)
[2017-11-23 05:28] LABS: CREATININE 2.1 mg/dL (0.6-1.3); GFR ESTIMATE (CALCULATED) 34 mL/min/ (58.99-99999)
[2017-11-23 05:29] LABS: DIGOXIN 1.1 ng/mL (0.8-2.0); UREA NITROGEN (BUN) 36 mg/dL (9-23)
[2017-11-23 07:36] VITALS: BP 120/80
[2017-11-23 07:58] LABS: BASOPHIL (%) 0.9 % (0-1); BASOPHIL COUNT 0.2 K/uL (0-0.1); EOSINOPHIL (%) 0.2 % (0-5); HEMATOCRIT 36.9 % (38.0-50.0); HEMOGLOBIN 11.7 G/DL (12.5-16.6); IMMATURE GRANULOCYTE (%) 4.7 % (0.0-0.7); LYMPHOCYTE (%) 4.8 % (15-42); LYMPHOCYTE COUNT 0.9 K/uL (1.0-2.8); MCHC 31.7 G/DL (30.0-36.0); MCV 103.9 FL (86-99); MONOCYTE (%) 11.2 % (3-12); MONOCYTE COUNT 2.2 K/uL (0-0.8); NEUTROPHIL (%) 78.2 % (45-76); PLATELET COUNT 347 K/uL (156-360); RBC DIS.WIDTH-CV 21.5 % (11.8-14.6); RBC DIS.WIDTH-SD 80.5 % (39-53); RED BLOOD COUNT 3.55 M/uL (4.00-5.50); WHITE BLOOD COUNT 19.2 K/uL (4.1-10.2)
[2017-11-23 11:05] VITALS: BP 140/74
[2017-11-23 16:39] VITALS: BP 147/78
[2017-11-23 20:00] VITALS: BP 159/88
[2017-11-24] VITALS (7 sets, daily range): BP systolic 140–164; BP diastolic 82–95
[2017-11-24 07:12] LABS: ALBUMIN 2.1 G/DL (3.2-4.8); CHLORIDE 105 MEQ/L (99-109); CREATININE 2.2 MG/DL (0.6-1.3); GFR ESTIMATE (CALCULATED) 33 mL/min/ (58.99-99999); GLUCOSE 90 mg/dL (70-99); PHOSPHORUS 4.4 mg/dL (2.5-4.9); POTASSIUM 4.3 MEQ/L (3.7-5.4); SODIUM 144 MEQ/L (136-147); UREA NITROGEN (BUN) 38 mg/dL (9-23)
[2017-11-25 03:16] VITALS: BP 151/86
[2017-11-25 06:20] LABS: ALBUMIN 2.2 G/DL (3.2-4.8); CHLORIDE 104 MEQ/L (99-109); CREATININE 2.1 MG/DL (0.6-1.3); GFR ESTIMATE (CALCULATED) 34 mL/min/ (58.99-99999); GLUCOSE 124 mg/dL (70-99); PHOSPHORUS 3.6 mg/dL (2.5-4.9); POTASSIUM 3.5 MEQ/L (3.7-5.4); SODIUM 141 MEQ/L (136-147); UREA NITROGEN (BUN) 38 mg/dL (9-23)
[2017-11-25 08:45] VITALS: BP 162/89
[2017-11-25 12:31] VITALS: BP 148/75
[2017-11-25 16:15] VITALS: BP 158/86
[2017-11-25 19:03] VITALS: BP 147/86
[2017-11-25 22:06] VITALS: BP 154/84
[2017-11-26 03:25] VITALS: BP 146/74
[2017-11-26 06:29] LABS: CHLORIDE 107 MEQ/L (99-109); GFR ESTIMATE (CALCULATED) 36 mL/min/ (58.99-99999); GLUCOSE 100 mg/dL (70-99); PHOSPHORUS 3.9 mg/dL (2.5-4.9); SODIUM 144 MEQ/L (136-147); UREA NITROGEN (BUN) 35 mg/dL (9-23)
[2017-11-26 06:32] LABS: POTASSIUM 4.4 MEQ/L (3.7-5.4)
[2017-11-26 08:46] VITALS: BP 158/76
[2017-11-26 11:00] VITALS: BP 120/58
[2017-11-26 18:24] VITALS: BP 120/64
[2017-11-26 23:23] VITALS: BP 141/77
[2017-11-27 07:20] VITALS: BP 132/80
[2017-11-27] MEDS ORDERED: CORDARONE200 MG PO (10:57)
[2017-11-27] MEDS ORDERED: LOPRESSOR50 MG PO (10:57)
[2017-11-27] MEDS ORDERED: ASPIR-LOW81 MG PO (10:58)
[2017-11-27] MEDS ORDERED: SEROQUEL12.5 MG PO (11:03)
[2017-11-27 21:05] VITALS: BP 162/95
[2017-11-27 23:43] VITALS: BP 174/82
[2017-11-28 07:25] VITALS: BP 161/87
[2017-11-28 09:25] LABS: HEMOGLOBIN 11.7 G/DL (12.5-16.6); MCH 32.7 PG (29.0-34.0); MCHC 31.6 G/DL (30.0-36.0); MCV 103.4 FL (86-99); RBC DIS.WIDTH-CV 20.8 % (11.8-14.6); RBC DIS.WIDTH-SD 78.7 % (39-53); RED BLOOD COUNT 3.58 M/uL (4.00-5.50); WHITE BLOOD COUNT 21.8 K/uL (4.1-10.2)
[2017-11-28 09:50] LABS: CHLORIDE 104 MEQ/L (99-109); CREATININE 1.8 MG/DL (0.6-1.3); GFR ESTIMATE (CALCULATED) 41 mL/min/ (58.99-99999); GLUCOSE 130 mg/dL (70-99); POTASSIUM 4.1 MEQ/L (3.7-5.4); SODIUM 142 MEQ/L (136-147); UREA NITROGEN (BUN) 34 mg/dL (9-23)
[2017-11-28 10:46] LABS: PLATELET COUNT 200 K/uL (156-360)
[2017-11-28 17:05] VITALS: BP 167/79
== END 2017-11-28 19:21 | DRG 3 ==
LOC: EME 13:43 → EDOF 15:53 → 4EAST 15:53 → ENRESERV 16:06 → 4EAST 17:03 → ENRESERV 10-19 11:08 → 4WEST 10-19 11:18 → ENRESERV 11-02 14:39 → 4EAST 11-02 16:54 → ENRESERV 11-08 17:25 → 5SOUTH 11-08 20:39 → CANRESERV 11-08 20:46 → ENRESERV 11-08 20:46 → 5SOUTH 11-15 16:31 → ENRESERV 11-15 16:44 → 5SOUTH 11-15 19:58 → ENRESERV 11-15 19:58 → 5SOUTH 11-15 22:31 → ENRESERV 11-15 22:36 → 4WEST 11-15 22:56 → ENRESERV 11-21 11:19 → 4EAST 11-21 16:54 → ENRESERV 11-26 09:35 → 5EAST 11-26 11:11
PROVIDERS: Emergency Medicine; Family Medicine; Internal Medicine; Internal Medicine Cardiovascular Disease; Internal Medicine Critical Care Medicine; Internal Medicine Gastroenterology; Internal Medicine Nephrology; Obstetrics & Gynecology; Physician Assistant; Specialist; Student in an Organized Health Care Education/Training Program; Surgery
DX: I48.1 Persistent atrial fibrillation (principal); I48.92 Unspecified atrial flutter; I13.2 Hypertensive heart and chronic kidney disease with heart failure and with stage 5 chronic kidney disease, or end stage renal disease; I50.21 Acute systolic (congestive) heart failure; A41.9 Sepsis, unspecified organism; R65.21 Severe sepsis with septic shock; J96.01 Acute respiratory failure with hypoxia; J96.02 Acute respiratory failure with hypercapnia; N17.0 Acute kidney failure with tubular necrosis; K72.00 Acute and subacute hepatic failure without coma; J44.0 Chronic obstructive pulmonary disease with (acute) lower respiratory infection; J18.9 Pneumonia, unspecified organism; B96.4 Proteus (mirabilis) (morganii) as the cause of diseases classified elsewhere; E86.1 Hypovolemia; E83.39 Other disorders of phosphorus metabolism; E83.51 Hypocalcemia; E87.6 Hypokalemia; E87.5 Hyperkalemia; E87.4 Mixed disorder of acid-base balance; I46.9 Cardiac arrest, cause unspecified; R00.1 Bradycardia, unspecified; D69.6 Thrombocytopenia, unspecified; B37.0 Candidal stomatitis; A04.72 Enterocolitis due to Clostridium difficile, not specified as recurrent; N39.0 Urinary tract infection, site not specified; B96.20 Unspecified Escherichia coli [E. coli] as the cause of diseases classified elsewhere; Z16.12 Extended spectrum beta lactamase (ESBL) resistance; E83.52 Hypercalcemia; R68.0 Hypothermia, not associated with low environmental temperature; L76.32 Postprocedural hematoma of skin and subcutaneous tissue following other procedure; Y84.8 Other medical procedures as the cause of abnormal reaction of the patient, or of later complication, without mention of misadventure at the time of the procedure; K94.23 Gastrostomy malfunction; K65.9 Peritonitis, unspecified; D50.9 Iron deficiency anemia, unspecified; D68.9 Coagulation defect, unspecified; J90 Pleural effusion, not elsewhere classified; I42.8 Other cardiomyopathies; R18.8 Other ascites; R00.0 Tachycardia, unspecified; F03.90 Unspecified dementia, unspecified severity, without behavioral disturbance, psychotic disturbance, mood disturbance, and anxiety; I08.1 Rheumatic disorders of both mitral and tricuspid valves; I25.10 Atherosclerotic heart disease of native coronary artery without angina pectoris; F17.210 Nicotine dependence, cigarettes, uncomplicated; Z89.021 Acquired absence of right finger(s)
CPT/HCPCS: 36600; 70450; 71045; 71250; 74018; 74019; 74176; 74230; 76000; 76705; 76942; 78582; 80048; 80048 91; 80053; 80061; 80069; 80074; 80076; 80162; 80202; 81003; 82140; 82330; 82390; 82533 91; 82550; 82803; 82948; 83540; 83605; 83735; 83880; 84100; 84145 90; 84165; 84443; 84466; 84484; 85025; 85025 91; 85027; 85384; 85610; 85730; 86038; 86141; 86235; 86256 90; 86376 90; 86704; 86706; 86850; 86900; 86901; 87040; 87070; 87075; 87077; 87086; 87106; 87186; 87205; 87493; 87641; 89051; 92507 GN; 92523 GN; 92526 GN; 92610 GN; 92611 GN; 92950; 93005; 93306; 94002; 94003; 94640; 94640 76; 94760; 94799; 97530 GO; 97530 GP; 99202; 99281; 99285; A6214; A6260; A9540; A9567; C1751; C1753; C1788; C1894; G0515 GN; J0153; J0171; J0330; J0360; J0461; J0610; J0690; J0696; J0881; J1100; J1160; J1335; J1644; J1720; J1756; J1940; J2248; J2250; J2370; J2543; J2597; J2704; J2765; J3010; J3370; J3430; J3475; J7030; J7040; J7050; J7070; J7120; P9017; P9045; P9047; S0020; S0028